=== PATIENT | male | born 1940 | race Caucasian/White ===

== ENCOUNTER → 2023-06-29 16:04 | Outpatient (REF) | payer MEDICARE, OTHER, SELFPAY | LOC: HWRAD 16:04 | PROVIDERS: ATTENDING PHYSICIAN Internal Medicine Geriatric Medicine | DX: I10 Essential (primary) hypertension (principal); J18.9 Pneumonia, unspecified organism | CPT/HCPCS: 71046 ==

== ENCOUNTER → 2023-07-07 14:56 | Outpatient (REF) | payer MEDICARE, OTHER, SELFPAY ==
[2023-07-07 15:56] LABS: Blood Urea Nitrogen 23 mg/dl (9-20); Calcium 8.7 mg/dl (8.4-10.2); Carbon Dioxide 23 mmol/L (22-30); Chloride 106 mmol/L (98-107); Glucose 61 mg/dl (70-99); Magnesium 1.9 mg/dl (1.6-2.3); Potassium 4.6 mmol/L (3.5-5.1); Sodium 134 mmol/L (135-145)
[2023-07-07 16:04] LABS: NT-proBNP 504 pg/ml
[2023-07-07 16:10] LABS: eGFR > 60.00
[2023-07-08 11:13] LABS: Free T4 1.28 ng/dl (0.78-2.19)
[2023-07-08 11:23] LABS: TSH 1.38 uIU/ml (0.47-4.68)
== END ==
LOC: REG 14:56
PROVIDERS: ATTENDING PHYSICIAN Internal Medicine Cardiovascular Disease; FAMILY PHYSICIAN Internal Medicine Geriatric Medicine
DX: I48.0 Paroxysmal atrial fibrillation (principal); I10 Essential (primary) hypertension; I35.0 Nonrheumatic aortic (valve) stenosis
CPT/HCPCS: 36415; 80048; 83735; 83880; 84439; 84443

== ENCOUNTER → 2023-08-07 11:10 | Outpatient (REF) | payer MEDICARE, OTHER, SELFPAY ==
[2023-08-07 15:37] LABS: % Basophils 0.7 % (0-2); % Immature Granulocytes 0.2 % (0-0.5); % Lymphocytes 24.5 % (20.5-51.1); % Monocytes 9.4 % (1.7-9.3); % Neutrophils 58.2 % (42.2-75.2); Absolute Eosinophils 0.3 10^3/uL (0-0.7); Absolute Lymphocytes 1.1 10^3/uL (1.2-3.4); Absolute Monocytes 0.4 10^3/uL (0.1-0.6); Absolute Neutrophils 2.6 10^3/uL (1.4-6.5); Hematocrit 37.9 % (39.0-52.0); Hemoglobin 12.5 g/dL (13.0-18.0); Mean Corpuscular Volume 90.9 fL (80.0-94.0); Nucleated Red Blood Cells % 0 % (-); Red Blood Cell Count 4.17 10^6/uL (4.70-6.10); White Blood Cell Count 4.5 10^3/uL (4.8-10.8)
[2023-08-07 15:44] LABS: Urine Albumin Negative (Neg - Trace); Urine Bilirubin 1+ (Negative); Urine Character Clear (Clear); Urine Color Yellow; Urine Glucose Negative (Negative); Urine Ketone Trace (Negative); Urine Leukocyte Trace (Negative); Urine Nitrite Negative (Negative); Urine Occult Blood Trace (Negative); Urine Urobilinogen 1+ (Neg - 1+)
[2023-08-07 16:03] LABS: Urine Bacteria Few (Negative); Urine White Cell 0-2 /HPF (0-5)
[2023-08-07 16:16] LABS: ALT (SGPT) 18 U/L (0-50); AST (SGOT) 31 U/L (17-59); Albumin 3.9 g/dl (3.5-5.0); Alkaline Phosphatase 142 U/L (38-126); Blood Urea Nitrogen 22 mg/dl (9-20); Carbon Dioxide 25 mmol/L (22-30); Chloride 105 mmol/L (98-107); Glucose 105 mg/dl (70-99); HDL Cholesterol 50 mg/dl; LDL Cholesterol, Calculated 17 mg/dl; Potassium 4.3 mmol/L (3.5-5.1); Sodium 138 mmol/L (135-145); Total Bilirubin 1.8 mg/dl (0.2-1.3); Total Cholesterol 83 mg/dl (50-199); Total Protein 6.7 g/dl (6.3-8.2); Triglyceride 84 mg/dl (10-149); Very Low Density Lipoprotein 16 mg/dl (0-30); eGFR 54.85
[2023-08-07 16:21] LABS: Mean Platelet Volume 10.3 fL (7.4-10.4); Platelet Count 89 10^3/uL (130-400)
[2023-08-07 16:30] LABS: Vitamin D, 25-OH*** 60.7 ng/mL (30-80)
== END ==
LOC: HWLAB 11:10
PROVIDERS: ATTENDING PHYSICIAN Internal Medicine Geriatric Medicine
DX: I10 Essential (primary) hypertension (principal); I48.0 Paroxysmal atrial fibrillation; I45.6 Pre-excitation syndrome; K22.70 Barrett's esophagus without dysplasia; I71.40 Abdominal aortic aneurysm, without rupture, unspecified; I35.0 Nonrheumatic aortic (valve) stenosis; E78.2 Mixed hyperlipidemia; I95.1 Orthostatic hypotension; G45.3 Amaurosis fugax; Z13.89 Encounter for screening for other disorder; M54.2 Cervicalgia; J18.9 Pneumonia, unspecified organism; K40.90 Unilateral inguinal hernia, without obstruction or gangrene, not specified as recurrent; N18.30 Chronic kidney disease, stage 3 unspecified
CPT/HCPCS: 36415; 80053; 80061; 81003; 81015; 82306; 85025

== ENCOUNTER → 2023-08-18 07:41 | Outpatient (REF) | payer MEDICARE, OTHER, SELFPAY ==
[2023-08-18 09:38] LABS: Urine Albumin Negative (Neg - Trace); Urine Bilirubin Negative (Negative); Urine Character Clear (Clear); Urine Color Yellow; Urine Glucose Negative (Negative); Urine Ketone Negative (Negative); Urine Leukocyte Negative (Negative); Urine Nitrite Negative (Negative); Urine Occult Blood Negative (Negative); Urine Urobilinogen 2+ (Neg - 1+)
[2023-08-18 12:55] LABS: ALT (SGPT) 30 U/L (0-50); AST (SGOT) 40 U/L (17-59); Albumin 3.8 g/dl (3.5-5.0); Alkaline Phosphatase 160 U/L (38-126); Blood Urea Nitrogen 18 mg/dl (9-20); Calcium 9.1 mg/dl (8.4-10.2); Carbon Dioxide 26 mmol/L (22-30); Chloride 105 mmol/L (98-107); Glucose 85 mg/dl (70-99); Potassium 4.9 mmol/L (3.5-5.1); Sodium 139 mmol/L (135-145); Total Bilirubin 1.3 mg/dl (0.2-1.3); Total Protein 6.6 g/dl (6.3-8.2); eGFR > 60.00
== END ==
LOC: HWLAB 07:41
PROVIDERS: ATTENDING PHYSICIAN Internal Medicine Geriatric Medicine
DX: N18.32 Chronic kidney disease, stage 3b (principal); I10 Essential (primary) hypertension; I48.0 Paroxysmal atrial fibrillation; I45.6 Pre-excitation syndrome; E78.2 Mixed hyperlipidemia; I5A Non-ischemic myocardial injury (non-traumatic)
CPT/HCPCS: 36415; 80053; 81003; 87086

== ENCOUNTER → 2023-08-31 15:59 | Outpatient (REF) | payer MEDICARE, OTHER, SELFPAY | LOC: RAD 15:59 | PROVIDERS: ATTENDING PHYSICIAN Nurse Practitioner Family | DX: R22.31 Localized swelling, mass and lump, right upper limb (principal); M79.601 Pain in right arm | CPT/HCPCS: 73080; 73090 ==

== ENCOUNTER → 2023-09-01 07:11 | Outpatient (REF) | payer MEDICARE, OTHER, SELFPAY | LOC: RCS 07:11 | PROVIDERS: ATTENDING PHYSICIAN Internal Medicine Cardiovascular Disease; FAMILY PHYSICIAN Internal Medicine Geriatric Medicine | DX: I10 Essential (primary) hypertension (principal); I48.0 Paroxysmal atrial fibrillation; R07.9 Chest pain, unspecified | CPT/HCPCS: 78452; 93017; A9500; J2785 ==

== ENCOUNTER → 2023-09-03 07:13 | Outpatient (REF) | payer MEDICARE, OTHER, SELFPAY | LOC: DHCBS HW 07:13 | PROVIDERS: ATTENDING PHYSICIAN Internal Medicine Cardiovascular Disease; FAMILY PHYSICIAN Internal Medicine Geriatric Medicine | DX: I49.3 Ventricular premature depolarization (principal) | CPT/HCPCS: 93306 ==

== ENCOUNTER → 2023-09-25 14:46 | Outpatient (REF) | payer MEDICARE, OTHER, SELFPAY | LOC: RAD 14:46 | PROVIDERS: ATTENDING PHYSICIAN Surgery Vascular Surgery; FAMILY PHYSICIAN Internal Medicine Geriatric Medicine | DX: I71.40 Abdominal aortic aneurysm, without rupture, unspecified (principal) | CPT/HCPCS: 76770 ==

== ENCOUNTER → 2023-11-03 10:34 | Outpatient (REF) | payer MEDICARE, OTHER, SELFPAY ==
[2023-11-05 13:56] LABS: Alk Phos Bone Specific Results 18.9 ug/L (6.5-20.1)
== END ==
LOC: REG 10:34
PROVIDERS: ATTENDING PHYSICIAN Internal Medicine Geriatric Medicine
DX: I10 Essential (primary) hypertension (principal); N18.32 Chronic kidney disease, stage 3b; I48.0 Paroxysmal atrial fibrillation; I45.6 Pre-excitation syndrome; K22.70 Barrett's esophagus without dysplasia; I71.40 Abdominal aortic aneurysm, without rupture, unspecified; I35.0 Nonrheumatic aortic (valve) stenosis; E78.2 Mixed hyperlipidemia; I95.1 Orthostatic hypotension; G45.3 Amaurosis fugax; Z13.89 Encounter for screening for other disorder; R00.2 Palpitations; M54.2 Cervicalgia; J18.9 Pneumonia, unspecified organism; K40.90 Unilateral inguinal hernia, without obstruction or gangrene, not specified as recurrent; K22.710 Barrett's esophagus with low grade dysplasia; I49.3 Ventricular premature depolarization; R74.8 Abnormal levels of other serum enzymes
CPT/HCPCS: 36415; 84075

== ENCOUNTER → 2023-11-13 13:26 | Outpatient (REF) | payer MEDICARE, OTHER, SELFPAY | LOC: MRI 13:26 | PROVIDERS: ATTENDING PHYSICIAN Internal Medicine Geriatric Medicine | DX: R74.8 Abnormal levels of other serum enzymes (principal) | CPT/HCPCS: 74181 ==

== ENCOUNTER 2024-01-16 22:06 | Emergency (ER) | payer MEDICARE, OTHER, SELFPAY ==
[2024-01-16 22:07] VITALS: BP 138/72
[2024-01-16 22:44] VITALS: BMI 25.8
--- NOTE | 2024-01-17 00:08 | ED.GENMED ---
History of Present Illness
<Loulou Reyes MD, Resident - Last Filed: 01/17/24 03:48>
General
Chief Complaint: Swelling
Source: patient
Exam Limitations: none
Time Seen by Provider: 01/16/24 23:34
Nursing documentation reviewed up to this point in time: agreed with
History of Present Illness
History of Present Illness:
83 yr old male who presents to the ED with worsening L ankle pain and swelling x 1 day. Pt noticed some swelling and mild stiffness yesterday which progressed to pain and difficulty walking. He has ambulated with a walker since to help alleviate
pain with weight-bearing. Reports some numbness at the bottom of his foot. no radiation.
He was seen at two days ago for acute left lower back pain for which he was prescribed cyclobenzaprine which helped with his back pain. Recent bout of watery diarrhea starting 1 week ago which was treated with imodium and resolved.
Denies hx of gout or recent increase in alcohol or meat intake. Has been on BRAT diet for diarrhea over the past week. No left ankle surgical history. Denies fever, malaise, chest pain, palpitations, SOB, N/V, or urinary symptoms.
Past History
<Loulou Reyes MD, Resident - Last Filed: 01/17/24 03:48>
Past History
ED Past Medical History: Arrthythmia (Atrial fib), HTN, Hypercholesterolemia, Valvular disease, Hypothyroidism, Other (Duodenal ulcer, WPW, barretts esophagus. PVC's, Kidney stones,) and Other ( glossopharyngeal neuralgia); Negative CAD
ED Past Surgical History: Cardiac (3 ablations, 3 cardioversions), Cholecystectomy, Orthopedic and Other (Noncontributory)
Social History
Tobacco: Former smoker (quit 40 years ago)
Alcohol: Occasional
Drug: None
Personal:
Living: with family
Employment: Employed
Family History
Family History: Other (Noncontributory)
Review of Systems
<Loulou Reyes MD, Resident - Last Filed: 01/17/24 03:48>
Review of Systems
Constitutional: Denies fever or fatigue
Respiratory: Denies trouble breathing
Cardiac: Denies chest pain or palpitations
ABD/GI: Denies nausea, vomiting or diarrhea
: Denies dysuria, frequency, difficulty voiding or urgency
Musculoskeletal: Reports joint pain (left lower back, left ankle) and joint swelling (L ankle swelling)
Neurological: Reports numbness (bottom of left foot)
Phy Exam
<Loulou Reyes MD, Resident - Last Filed: 01/17/24 03:48>
General Physical Exam
General Presentation: well appearing and no apparent distress
General Skin: warm and dry
General Habitus: normal
General Mental: alert
Cardiovascular Exam
Cardiovascular Exam: regular rate/rhythm, no edema and pacemaker
Pulmonary Exam
Pulmonary Exam: lungs clear, no respiratory distress, no rales, no crackles, no rhonchi and no wheezing
Neurological Exam
Neurological Exam: alert and oriented x3
Musculoskeletal Exam
Musculoskeletal Exam: back pain (mild tenderness in L lower back), joint swelling (left ankle swelling, tender, warm to touch. ROM restricted by pain. ) and neuro vasc intact
Scores
<Yodit Rodriguez, DO - Last Filed: 01/17/24 02:29>
Heart Failure Risk
Heart Failure Risk Score: Not Applicable
Course
<Loulou Reyes MD, Resident - Last Filed: 01/17/24 03:48>
Orders/Labs/Results
Orders:
Orders
01/17/24 00:08
Ankle, left 3 view CR [CR Ankle - Left Min 3 Views ] Urgent
Comment:
Reason For Exam: L ankle pain and swelling
01/17/24 00:20
Acetaminophen 1000MG/100Ml [Ofirmev] 1,000 mg in 100 ml IV ONCE
Acetaminophen IV Indication:: ED Narcotic Naive Pt-ONCE
01/17/24 00:24
Complete Blood Count/With Diff Urgent
Sed Rate [Erythrocyte Sed Rate] Urgent
01/17/24 00:47
C-Reactive Protein Urgent
Comprehensive Metabolic Panel Urgent
Lyme Progressive Urgent
Comment: ADD ON
Uric Acid Urgent
01/17/24 01:02
0.9% Sodium Chloride 1000 ml [Nss] 1,000 ml IV BOLUS
01/17/24 02:21
Dexamethasone Sod Phosphate [Decadron] 10 mg IV NOW STA
01/17/24 02:26
Add On- LAB Urgent
Tests Added?: Lyme progressive
Abnormal Lab Results
01/17/24 01/17/24
00:24 00:47
RBC 3.86 L 10^6/uL
(4.70-6.10)
Hgb 12.0 L g/dL
(13.0-18.0)
Hct 34.0 L %
(39.0-52.0)
MCH 31.1 H pg
(27.0-31.0)
RDW 14.8 H %
(11.5-14.5)
Plt Count 91 L 10^3/uL
(130-400)
Absolute Lymphs (auto) 0.8 L 10^3/uL
(1.2-3.4)
Absolute Monos (auto) 0.8 H 10^3/uL
(0.1-0.6)
Lymphocytes % 13.8 L %
(20.5-51.1)
Monocytes % 12.9 H %
(1.7-9.3)
ESR 31 H mm/hour
(0-20)
Glucose 108 H mg/dl
(70-99)
Total Bilirubin 1.9 H mg/dl
(0.2-1.3)
C-Reactive Protein 148.70 H mg/L
(0.0-10.00)
01/17/24 00:24
01/17/24 00:47
Vital Signs
Initial and Last Documented VS:
Initial Vital Signs
Temp Pulse Resp BP Pulse Ox
98.1 F 71 20 138/72 99
01/16/24 22:07 01/16/24 22:07 01/16/24 22:07 01/16/24 22:07 01/16/24 22:07
Last Documented Vital Signs
Temp Pulse Resp BP Pulse Ox
98.4 F 70 16 128/74 98
01/17/24 01:27 01/17/24 02:30 01/17/24 02:30 01/17/24 02:30 01/17/24 02:30
<Yodit Rodriguez, DO - Last Filed: 01/17/24 02:29>
Orders/Labs/Results
Orders:
Orders
01/17/24 00:08
Ankle, left 3 view CR [CR Ankle - Left Min 3 Views ] Urgent
Comment:
Reason For Exam: L ankle pain and swelling
01/17/24 00:20
Acetaminophen 1000MG/100Ml [Ofirmev] 1,000 mg in 100 ml IV ONCE
Acetaminophen IV Indication:: ED Narcotic Naive Pt-ONCE
01/17/24 00:24
Complete Blood Count/With Diff Urgent
Sed Rate [Erythrocyte Sed Rate] Urgent
01/17/24 00:47
C-Reactive Protein Urgent
Comprehensive Metabolic Panel Urgent
Lyme Progressive Urgent
Comment: ADD ON
Uric Acid Urgent
01/17/24 01:02
0.9% Sodium Chloride 1000 ml [Nss] 1,000 ml IV BOLUS
01/17/24 02:21
Dexamethasone Sod Phosphate [Decadron] 10 mg IV NOW STA
01/17/24 02:26
Add On- LAB Urgent
Tests Added?: Lyme progressive
Abnormal Lab Results
01/17/24 01/17/24
00:24 00:47
RBC 3.86 L 10^6/uL
(4.70-6.10)
Hgb 12.0 L g/dL
(13.0-18.0)
Hct 34.0 L %
(39.0-52.0)
MCH 31.1 H pg
(27.0-31.0)
RDW 14.8 H %
(11.5-14.5)
Plt Count 91 L 10^3/uL
(130-400)
Absolute Lymphs (auto) 0.8 L 10^3/uL
(1.2-3.4)
Absolute Monos (auto) 0.8 H 10^3/uL
(0.1-0.6)
Lymphocytes % 13.8 L %
(20.5-51.1)
Monocytes % 12.9 H %
(1.7-9.3)
ESR 31 H mm/hour
(0-20)
Glucose 108 H mg/dl
(70-99)
Total Bilirubin 1.9 H mg/dl
(0.2-1.3)
C-Reactive Protein 148.70 H mg/L
(0.0-10.00)
01/17/24 00:24
01/17/24 00:47
Vital Signs
Initial and Last Documented VS:
Initial Vital Signs
Temp Pulse Resp BP Pulse Ox
98.1 F 71 20 138/72 99
01/16/24 22:07 01/16/24 22:07 01/16/24 22:07 01/16/24 22:07 01/16/24 22:07
Last Documented Vital Signs
Temp Pulse Resp BP Pulse Ox
98.4 F 70 16 128/74 98
01/17/24 01:27 01/17/24 02:30 01/17/24 02:30 01/17/24 02:30 01/17/24 02:30
<Loulou eRyes MD, Resident - Last Filed: 01/17/24 03:48>
MDM/Problems Addressed
Differential Diagnosis Includes:
Inflammatory arthritis, gout, pseudogout, septic arthritis, ankle sprain, fracture
MDM/Problems Addressed:
No known history of gout. Non-traumatic onset of ankle pain and swelling. Will check CMP, CBC, uric acid, sed rate, CRP, and L ankle xray.
<Yodit Rodriguez, DO - Last Filed: 01/17/24 02:29>
*Radiology
Radiology exam reviewed: preliminary read by ED provider (Left ankle x-ray shows mild DJD, calcification of arterials, otherwise unremarkable.)
*Pulse Oximetry
Patient hypoxic: no
*Critical Care Note
Total Time (30-74mins, 75-104mins- exclusive of procedures): Not Applicable
ED Attending Note
<Loulou Reyes MD, Resident - Last Filed: 01/17/24 03:48>
-
Portions of this chart may have been created with voice recognition software.� Occasional wrong word or��sound alike� substitutions may have occurred due to the inherent limitations of voice recognition software.
<Yodit Rodriguez DO - Last Filed: 01/17/24 02:29>
ED Attending Note
Patient seen and examined by attending physician: Yes
I performed the substantive portion of visit, reviewed & personally made and approve the management plan that is documented in note by myself or RAFIA.: Yes
ED Attending Note:
This is an 83-year-old gentleman who resides at home independently. He has history of paroxysmal atrial fibrillation, chronically maintained on Eliquis, history of GERD/Ferrell's esophagus, hypertension, hyperlipidemia, WPW, AAA�stable at 4.4 cm as
well as history of osteoarthritis with previous right knee replacement, bilateral shoulder replacements, right ankle reconstruction. He noted some low back pain on January 14 and was evaluated at urgent care, prescribed cyclobenzaprine with
improvement in back pain. No insightful injury nor fall. Then earlier today he noted atraumatic left ankle pain accompanied with mild swelling of his ankle that has gotten progressively worse throughout the day. He has not had a fever nor chills.
No calf pain nor swelling. No history of similar episodes in the past. He has not been taking anything for pain.
He reports no history of similar inflammatory arthropathies, no known history of gout nor pseudogout.
No recent invasive procedures, no recent dental cleaning etc.
Left ankle pain is worse with range of motion of his ankle, worse with ambulation, improves mildly when he is lying or sitting still.
He also notes some loose stools over the past week, passing 2-3 watery nonbloody bowel movements per day beginning last January 08. No accompanying abdominal pain, no nausea nor vomiting. He did call his PCP yesterday and picked up stool
collection kit but has not passed a bowel movement throughout the day today.
This is an 83-year-old gentleman who appears somewhat younger than stated age, bright and alert, pleasant, appears in no acute distress.
HEENT: Oral mucosa is very minimally dry. No rhinorrhea.
Neck is supple, nontender, no adenopathy.
Heart is regular rate and rhythm. No murmur no rub.
Lungs are clear to auscultation. No respiratory distress.
Abdomen is soft without appreciable tenderness. No palpable masses. No CVA tenderness.
Back: No midline bony tenderness. Minimal lower lumbar paravertebral tenderness to palpation. Straight leg raising is negative bilaterally.
Extremities: No clubbing or cyanosis nor edema. Peripheral pulses are full and equal bilaterally. Left ankle/proximal foot has very minimal soft tissue swelling with very minimal erythema along the anterior and medial aspect of the mid to distal
ankle. Mild to moderate local tenderness to palpation. There is full ankle range of motion with increased pain with dorsiflexion, inversion and eversion. No crepitus. There is no calf tenderness. No lymphangitis. No palpable heat.
Neuro: Awake alert and oriented x 3. No focal neurodeficits.
Concern for acute inflammatory arthropathy left ankle. Concern for osteoarthritis flare/acute gout versus pseudogout flare, other consideration is infectious arthropathy however reassuring the patient has not had a fever, no history of
immunocompromise. No history of diabetes etc. No definitive risk factors for infectious arthropathy.
He does note 1 week history of diarrheal illness thus there is concern for acute kidney injury/dehydration, electrolyte abnormality. Abdominal exam is soft and benign and he has had no diarrhea over the past 24 hours.
No recent antibiotic use.
Will check labs including inflammatory markers, uric acid. Will check x-ray left ankle.
As patient chronically maintained on Eliquis, history of GERD/gastritis, Ferrell's esophagus will avoid NSAIDs.
Will trial an IV dose of Tylenol for pain.
01/17/2024 0221 AM
Patient feeling mildly improved after IV Tylenol. Resting comfortably and remains afebrile.
X-ray of left ankle shows mild DJD, calcified arterials otherwise unremarkable.
Labs show normal white blood cell count of 6. Mild but stable thrombocytopenia, mild but stable anemia.
Chemistries show normal BUN and creatinine, normal electrolytes, mildly elevated total bili of 1.9, similar to previous.
Sed rate is mildly elevated at 31, CRP moderately elevated at 148.
History and exam most consistent with acute inflammatory arthropathy but at this point no convincing evidence of infectious arthropathy. There is very mild soft tissue swelling but not amenable to arthrocentesis for joint fluid analysis.
Will treat with a short course of prednisone and recommend he continue twice daily Protonix for GI protection.
A Lyme titer has been added to the blood in the lab.
He has a follow-up appointment with [facility] orth[facility] scheduled for January 20. This was scheduled for his ongoing low back pain for which he follows sporadically with the finance specialist at [facility] orth[facility]. Recommend
he call his orthopod for follow-up regarding left ankle pain as well.
Return precautions discussed.
Discharge Plan
Departure
Patient Disposition: Home (Routine Discharge)
Date of Disposition: 01/17/24
Time of Disposition: 02:24
Patient with high blood pressure during this ER visit?: No
Condition: Good
Discharge Problem:
acute inflammatory arthropathy L ankle
Instructions: Osteoarthritis, Gout ED
Prescriptions:
New
prednisone 50 mg tablet
50 mg PO DAILY Qty: 5 0RF
No Action
ascorbic acid (vitamin C) [Vitamin C] 500 MG tablet
1,000 mg PO DAILY
Centrum Silver 1 EACH tablet
1 ea PO DAILY
Eliquis 5 MG tablet
5 mg PO BID Qty: 90 3RF
omeprazole 40 MG capsule,delayed release(DR/EC)
40 mg PO BID
amlodipine 5 mg Tablet
5 mg PO DAILY
levothyroxine [Synthroid] 50 mcg Tablet
50 mcg PO DAILY
coenzyme Q10 30 mg Capsule
60 mg PO DAILY
cholecalciferol (vitamin D3) [Vitamin D3] 25 mcg (1,000 unit) Capsule
25 mcg PO DAILY
acetaminophen 500 mg Tablet
1,000 mg PO Q6HPRN PRN (Reason: mild pain)
atorvastatin 40 mg tablet
80 mg PO QPM
ferrous sulfate 325 mg (65 mg iron) Tablet
325 mg PO DAILY Qty: 0
acetaminophen-codeine 300-30 mg tablet
1 tab PO Q4HPRN PRN (Reason: knee pains)
potassium citrate 10 mEq (1,080 mg) Tablet Extended Release
10 meq PO BID
metoprolol succinate 25 mg tablet extended release 24 hr
25 mg PO DAILY Qty: 1 0RF
doxycycline monohydrate 100 mg capsule
100 mg PO BID Qty: 20 0RF
Referrals:
Randolph Adams MD [Family Provider] - Call in 1-3 days for appt
Activity Restrictions/Additional Instructions:
Follow-up with [facility] orth[facility] as already scheduled.
Interventions
Interventions:
*Risk Screen - Suicide Last Done: 01/16/24 22:44
*General Assessment Last Done: 01/16/24 22:44
*Neglect/Abuse Screening Last Done: 01/16/24 22:44
ED- Fall Risk Assessment Last Done: 01/16/24 22:44
*ED COVID-19 Vaccine History Last Done: 01/16/24 22:44
*Nursing Disposition Last Done: 01/17/24 02:33
ED- Cardiac Assessment Last Done: 01/16/24 22:56
ED- Pulmonary Assessment Last Done: 01/16/24 22:57
ED-Skin Assessment Last Done: 01/16/24 22:57
Discharge Date and Time
Discharge Date/Time: 01/17/24 02:43
Print Language: BRUNEIAN
[2024-01-17] MEDS: OFIRMEV 100 IV (00:28)
[2024-01-17 00:40] LABS: Erythrocyte Sed Rate 31 mm/hour (0-20)
[2024-01-17 00:50] LABS: Mean Corp Hgb Conc. 35.3 g/dL (33.0-37.0); Mean Corpuscular Hgb 31.1 pg (27.0-31.0); Mean Corpuscular Volume 88.1 fL (80.0-94.0); Red Blood Cell Count 3.86 10^6/uL (4.70-6.10); Red Cell Dist. Width 14.8 % (11.5-14.5)
[2024-01-17 01:16] LABS: ALT (SGPT) 24 U/L (0-50); AST (SGOT) 44 U/L (17-59); Albumin 3.7 g/dl (3.5-5.0); Alkaline Phosphatase 113 U/L (38-126); Blood Urea Nitrogen 18 mg/dl (9-20); Calcium 8.8 mg/dl (8.4-10.2); Carbon Dioxide 26 mmol/L (22-30); Chloride 100 mmol/L (98-107); Estimated Creatinine Clearance 58 ml/min; Glucose 108 mg/dl (70-99); Sodium 137 mmol/L (135-145); Total Bilirubin 1.9 mg/dl (0.2-1.3); Total Protein 6.7 g/dl (6.3-8.2); eGFR > 60.00
[2024-01-17] MEDS: NSS 1000 IV (01:21)
[2024-01-17 01:24] VITALS: BP 125/71
[2024-01-17 01:27] VITALS: BP 125/71
[2024-01-17 01:28] LABS: % Basophils 0.3 % (0-2); % Immature Granulocytes 0.3 % (0-0.5); % Lymphocytes 13.8 % (20.5-51.1); % Monocytes 12.9 % (1.7-9.3); % Neutrophils 71.7 % (42.2-75.2); Absolute Eosinophils 0.1 10^3/uL (0-0.7); Absolute Lymphocytes 0.8 10^3/uL (1.2-3.4); Absolute Monocytes 0.8 10^3/uL (0.1-0.6); Absolute Neutrophils 4.3 10^3/uL (1.4-6.5); Nucleated Red Blood Cells % 0 % (-); Platelet Count 91 10^3/uL (130-400)
[2024-01-17 01:34] LABS: Uric Acid 6.9 mg/dl (3.5-8.5)
[2024-01-17 02:00] VITALS: BP 125/72
[2024-01-17] MEDS: DECADRON 10 MG IV (02:25)
[2024-01-17 02:30] VITALS: BP 128/74
[2024-01-18 12:14] LABS: Lyme Antibody Screen, EIA Negative (Negative)
== END 2024-01-17 02:43 | disposition home or self-care (01) ==
LOC: EMR 22:06
PROVIDERS: Student in an Organized Health Care Education/Training Program; EMERGENCY PHYSICIAN Emergency Medicine; FAMILY PHYSICIAN Internal Medicine Geriatric Medicine
DX: M12.872 Other specific arthropathies, not elsewhere classified, left ankle and foot (principal); M54.50 Low back pain, unspecified; M25.572 Pain in left ankle and joints of left foot; R26.2 Difficulty in walking, not elsewhere classified; M25.472 Effusion, left ankle; R20.0 Anesthesia of skin; I48.0 Paroxysmal atrial fibrillation; I10 Essential (primary) hypertension; I71.40 Abdominal aortic aneurysm, without rupture, unspecified; M19.90 Unspecified osteoarthritis, unspecified site; E78.00 Pure hypercholesterolemia, unspecified; K21.9 Gastro-esophageal reflux disease without esophagitis; E03.9 Hypothyroidism, unspecified; I45.6 Pre-excitation syndrome; K22.70 Barrett's esophagus without dysplasia; Z79.01 Long term (current) use of anticoagulants; Z96.612 Presence of left artificial shoulder joint; Z96.611 Presence of right artificial shoulder joint; Z96.651 Presence of right artificial knee joint; Z87.442 Personal history of urinary calculi; Z87.891 Personal history of nicotine dependence; Z90.49 Acquired absence of other specified parts of digestive tract; Z88.6 Allergy status to analgesic agent; Z88.8 Allergy status to other drugs, medicaments and biological substances
CPT/HCPCS: 99284; 96374; 96375; 96361 ×2; 73610; 80053; 84550; 85025; 85652; 86140; 86618

== ENCOUNTER → 2024-01-28 09:56 | Outpatient (REF) | payer MEDICARE, OTHER, SELFPAY ==
[2024-01-28 10:38] LABS: Urine Albumin Negative (Neg - Trace); Urine Bilirubin Negative (Negative); Urine Character Clear (Clear); Urine Color Yellow; Urine Glucose Negative (Negative); Urine Ketone Negative (Negative); Urine Leukocyte Negative (Negative); Urine Nitrite Negative (Negative); Urine Occult Blood 3+ (Negative); Urine Urobilinogen 1+ (Neg - 1+)
[2024-01-28 10:39] LABS: % Basophils 0.2 % (0-2); % Eosinophils 2.5 % (0-6); % Immature Granulocytes 0.6 % (0-0.5); % Lymphocytes 12.2 % (20.5-51.1); % Monocytes 10.6 % (1.7-9.3); % Neutrophils 73.9 % (42.2-75.2); Absolute Eosinophils 0.2 10^3/uL (0-0.7); Absolute Lymphocytes 0.8 10^3/uL (1.2-3.4); Absolute Monocytes 0.7 10^3/uL (0.1-0.6); Absolute Neutrophils 4.7 10^3/uL (1.4-6.5); Hemoglobin 12.6 g/dL (13.0-18.0); Mean Corp Hgb Conc. 34.1 g/dL (33.0-37.0); Mean Corpuscular Hgb 31.7 pg (27.0-31.0); Mean Platelet Volume 9.6 fL (7.4-10.4); Nucleated Red Blood Cells % 0 % (-); Platelet Count 107 10^3/uL (130-400); Red Blood Cell Count 3.98 10^6/uL (4.70-6.10); Red Cell Dist. Width 15.8 % (11.5-14.5); White Blood Cell Count 6.4 10^3/uL (4.8-10.8)
[2024-01-28 10:56] LABS: Erythrocyte Sed Rate 16 mm/hour (0-20)
[2024-01-28 10:58] LABS: Urine Squamous Cell 0-2 /LPF (Few)
[2024-01-28 10:59] LABS: Urine Bacteria Few (Negative); Urine White Cell 0-2 /HPF (0-5)
[2024-01-28 11:07] LABS: ALT (SGPT) 52 U/L (0-50); AST (SGOT) 47 U/L (17-59); Albumin 3.6 g/dl (3.5-5.0); Alkaline Phosphatase 171 U/L (38-126); Blood Urea Nitrogen 19 mg/dl (9-20); Calcium 8.9 mg/dl (8.4-10.2); Carbon Dioxide 25 mmol/L (22-30); Chloride 102 mmol/L (98-107); Glucose 123 mg/dl (70-99); Iron 73 ug/dl (49-181); Potassium 4.1 mmol/L (3.5-5.1); Sodium 136 mmol/L (135-145); Total Bilirubin 1.4 mg/dl (0.2-1.3); Total Protein 6.3 g/dl (6.3-8.2); eGFR > 60.00
[2024-01-28 11:16] LABS: Percent Saturation 27 % (20-50); Total Iron Binding Capacity 270 ug/dl (261-462)
[2024-01-28 11:23] LABS: Vitamin D, 25-OH*** 51.8 ng/mL (30-80)
== END ==
LOC: REG 09:56
PROVIDERS: ATTENDING PHYSICIAN Internal Medicine Geriatric Medicine
DX: I10 Essential (primary) hypertension (principal); N18.32 Chronic kidney disease, stage 3b; I48.0 Paroxysmal atrial fibrillation; E78.2 Mixed hyperlipidemia; I95.1 Orthostatic hypotension; Z13.89 Encounter for screening for other disorder; R00.2 Palpitations; M54.2 Cervicalgia; J18.9 Pneumonia, unspecified organism; K40.90 Unilateral inguinal hernia, without obstruction or gangrene, not specified as recurrent; K22.710 Barrett's esophagus with low grade dysplasia; I49.3 Ventricular premature depolarization
CPT/HCPCS: 36415; 80053; 81003; 81015; 82306; 83540; 83550; 85025; 85652; 86140

== ENCOUNTER → 2024-02-03 12:27 | Outpatient (REF) | payer MEDICARE, OTHER, SELFPAY ==
[2024-02-03 17:35] LABS: Urine Albumin Negative (Neg - Trace); Urine Bilirubin Negative (Negative); Urine Character Clear (Clear); Urine Color Yellow; Urine Glucose Negative (Negative); Urine Ketone Negative (Negative); Urine Leukocyte Negative (Negative); Urine Nitrite Negative (Negative); Urine Occult Blood Negative (Negative); Urine Urobilinogen Negative (Neg - 1+)
== END ==
LOC: HWLAB 12:27
PROVIDERS: ATTENDING PHYSICIAN Internal Medicine Geriatric Medicine
DX: R31.9 Hematuria, unspecified (principal)
CPT/HCPCS: 36415; 81003; 87086

== ENCOUNTER 2024-02-14 17:54 | Inpatient (IN) | payer MEDICARE, OTHER, SELFPAY ==
[2024-02-14] VITALS (8 sets, daily range): BP systolic 130–148; BP diastolic 74–84; BMI 25.5; BMI 24.1
--- NOTE | 2024-02-14 16:20 | EDRN ---
[employer] PM interrogated at this time.
--- NOTE | 2024-02-14 16:25 | EDRN ---
Portable CXR done at stretcher side.
--- NOTE | 2024-02-14 16:31 | ED.GENMED ---
History of Present Illness
<Hanh Hunter DRY PAN FEEDER - Last Filed: 02/14/24 17:56>
General
Chief Complaint: Heart Rate Problem
Source: patient
Exam Limitations: none
Time Seen by Provider: 02/14/24 16:31
Nursing documentation reviewed up to this point in time: agreed with
History of Present Illness
History of Present Illness:
83-year-old male with history of HTN moderate aortic stenosis, paroxysmal A-fib on Eliquis, Ffwme-Ytisitbyt-Jtfvb syndrome, Ferrell's esophagus, pacemaker, iron deficiency anemia, AAA without rupture, obesity, osteoarthritis, presents for
lightheadedness, palpitations, chest pain.
States upon awakening this a.m. felt lightheaded which is 'usual for me with all my medications,'
At 12 noon felt palpitations and lightheaded.
At 2 p.m. the lightheadedness was worse, he felt palpitations and his Apple watch showed 'my heart rate was out of whack.'
Around 3:15 developed mid chest, non radiating pain that lasted about 10 minutes then subsided.
Never felt faint
Symptoms occurred mostly while sitting at home.
No SOB, n/v, abdominal pain or breaking out in sweat.
Past History
<Hanh Hunter, DRY PAN FEEDER - Last Filed: 02/14/24 17:56>
Past History
ED Past Medical History: Arrthythmia (Atrial fib), HTN, Hypercholesterolemia, Valvular disease, Hypothyroidism, Other (Duodenal ulcer, WPW, barretts esophagus. PVC's, Kidney stones,) and Other ( glossopharyngeal neuralgia); Negative CAD
ED Past Surgical History: Cardiac (3 ablations, 3 cardioversions), Cholecystectomy, Orthopedic and Other (Noncontributory)
Social History
Tobacco: Former smoker (quit 40 years ago)
Alcohol: Occasional
Drug: None
Personal:
Living: with family
Employment: Employed
Family History
Family History: Other (Noncontributory)
Review of Systems
<Hanh Hunter DRY PAN FEEDER - Last Filed: 02/14/24 17:56>
Review of Systems
Allergies reviewed?: Yes
All Other Systems: ROS reviewed and negative except as documented in HPI and ROS
Constitutional: Denies fever or fatigue
Respiratory: Denies trouble breathing
Cardiac: Reports chest pain and palpitations; Denies diaphoresis or syncope
ABD/GI: Denies abdominal pain, nausea, vomiting, diarrhea, constipated or anorexia
: Denies dysuria, frequency or difficulty voiding
Musculoskeletal: Reports no symptoms
Skin: Reports no symptoms
Neurological: Reports no symptoms
Phy Exam
<Hanh Hunter, DRY PAN FEEDER - Last Filed: 02/14/24 17:56>
Physical Exam
Physical Exam:
GENERAL: No acute distress. A&Ox3.
CONSTITUTIONAL: Afebrile.
EYES: clear, conjunctivae normal
ENMT: moist mucus membranes, Pharynx nl
RESPIRATORY: Regular respirations, nonlabored, lungs clear.
CARDIOVASCULAR: Regular rate and rhythm, no murmurs, no rubs. HR 78 paced on monitor
GI: Soft, nontender, normal BS
MUSCULOSKELETAL: Moves with ease. Well perfused.
SKIN: Warm, dry, pink
PSYCH: Normal mood and affect. Well kept, interactive and appropriate
NEUROLOGIC: Awake, alert and oriented. No focal neurological deficits
Course
<Hanh Hunter, DRY PAN FEEDER - Last Filed: 02/14/24 17:56>
Orders/Labs/Results
Orders:
Orders
02/14/24 15:46
ECG [Electrocardiogram (*1)] Urgent
Reason for Study: Chest Pain
EKG- Treatment ONCE
02/14/24 16:15
Cardiac Monitoring- Treatment ONCE
IV Insert/Care/Rem.- Treatment PRN
CR Chest Portable - 1 View Urgent
Comment:
Reason For Exam: cp
Reason Study Needs to be Portable: Other
Pulse Ox/cont/shift [RESP] Stat
Quantity: 1
02/14/24 16:36
Complete Blood Count/With Diff Urgent
02/14/24 17:09
Comprehensive Metabolic Panel Urgent
Troponin I Urgent
02/14/24 17:44
Admit/Transfer Patient As Directed
Co-Sign Provider:
Level of Care: Inpatient admission
Assign to:: IVU
Physician / Group: cristobal
Diagnosis: chest pain
Reason for Hospitalization: chest pain
Expected length of stay greater than two midnights?: Yes
ELOS- Estimated Length of Stay in days: 3
I certify the patient meets the requirements for IP care: Yes
PRN Pain Medication Management As Directed
May give lesser potent ordered pain med per pt: Yes
preference::
Protocol:: Medication orders for pain may be administered in a
manner that supports deferring to patient preference
when the pt is:
- Requesting an ordered lesser potent pain medication.
Least to most potent pain medications are defined
as: acetaminophen < NSAID < tramadol < opioids
(morphine, oxycodone, hydromorphone).
- Requesting a lesser dose of the same medication IF
ORDERED.
- Requesting a less intrusive route of administration
if both routes are prescribed by the provider (PO <
IV).
02/14/24 17:45
Code Status As Directed
Resuscitation Status: Full Code
02/14/24 17:50
Add On- LAB Stat
Tests Added?: magnesium
Abnormal Lab Results
02/14/24 02/14/24
16:36 17:09
WBC 4.2 L 10^3/uL
(4.8-10.8)
RBC 3.94 L 10^6/uL
(4.70-6.10)
Hgb 12.5 L g/dL
(13.0-18.0)
Hct 36.3 L %
(39.0-52.0)
MCH 31.7 H pg
(27.0-31.0)
RDW 15.2 H %
(11.5-14.5)
Plt Count 111 L 10^3/uL
(130-400)
Absolute Lymphs (auto) 1.0 L 10^3/uL
(1.2-3.4)
Monocytes % 10.5 H %
(1.7-9.3)
BUN 23 H mg/dl
(9-20)
Alkaline Phosphatase 147 H U/L
(38-126)
02/14/24 16:36
02/14/24 17:09
Vital Signs
Initial and Last Documented VS:
Initial Vital Signs
Temp Pulse Resp BP Pulse Ox
97.8 F 78 18 142/84 99
02/14/24 15:53 02/14/24 15:53 02/14/24 15:53 02/14/24 15:53 02/14/24 15:53
Last Documented Vital Signs
Temp Pulse Resp BP Pulse Ox
97.8 F 70 17 135/83 96
02/14/24 15:53 02/14/24 17:15 02/14/24 17:15 02/14/24 17:00 02/14/24 17:15
<Chuck Martinez MD - Last Filed: 02/14/24 17:12>
Orders/Labs/Results
Orders:
Orders
02/14/24 15:46
ECG [Electrocardiogram (*1)] Urgent
Reason for Study: Chest Pain
EKG- Treatment ONCE
02/14/24 16:15
Cardiac Monitoring- Treatment ONCE
IV Insert/Care/Rem.- Treatment PRN
CR Chest Portable - 1 View Urgent
Comment:
Reason For Exam: cp
Reason Study Needs to be Portable: Other
Pulse Ox/cont/shift [RESP] Stat
Quantity: 1
02/14/24 16:36
Complete Blood Count/With Diff Urgent
02/14/24 17:09
Comprehensive Metabolic Panel Urgent
Troponin I Urgent
02/14/24 17:44
Admit/Transfer Patient As Directed
Co-Sign Provider:
Level of Care: Inpatient admission
Assign to:: IVU
Physician / Group: cristobal
Diagnosis: chest pain
Reason for Hospitalization: chest pain
Expected length of stay greater than two midnights?: Yes
ELOS- Estimated Length of Stay in days: 3
I certify the patient meets the requirements for IP care: Yes
PRN Pain Medication Management As Directed
May give lesser potent ordered pain med per pt: Yes
preference::
Protocol:: Medication orders for pain may be administered in a
manner that supports deferring to patient preference
when the pt is:
- Requesting an ordered lesser potent pain medication.
Least to most potent pain medications are defined
as: acetaminophen < NSAID < tramadol < opioids
(morphine, oxycodone, hydromorphone).
- Requesting a lesser dose of the same medication IF
ORDERED.
- Requesting a less intrusive route of administration
if both routes are prescribed by the provider (PO <
IV).
02/14/24 17:45
Code Status As Directed
Resuscitation Status: Full Code
02/14/24 17:50
Add On- LAB Stat
Tests Added?: magnesium
Abnormal Lab Results
02/14/24 02/14/24
16:36 17:09
WBC 4.2 L 10^3/uL
(4.8-10.8)
RBC 3.94 L 10^6/uL
(4.70-6.10)
Hgb 12.5 L g/dL
(13.0-18.0)
Hct 36.3 L %
(39.0-52.0)
MCH 31.7 H pg
(27.0-31.0)
RDW 15.2 H %
(11.5-14.5)
Plt Count 111 L 10^3/uL
(130-400)
Absolute Lymphs (auto) 1.0 L 10^3/uL
(1.2-3.4)
Monocytes % 10.5 H %
(1.7-9.3)
BUN 23 H mg/dl
(9-20)
Alkaline Phosphatase 147 H U/L
(38-126)
02/14/24 16:36
02/14/24 17:09
Vital Signs
Initial and Last Documented VS:
Initial Vital Signs
Temp Pulse Resp BP Pulse Ox
97.8 F 78 18 142/84 99
02/14/24 15:53 02/14/24 15:53 02/14/24 15:53 02/14/24 15:53 02/14/24 15:53
Last Documented Vital Signs
Temp Pulse Resp BP Pulse Ox
97.8 F 70 17 135/83 96
02/14/24 15:53 02/14/24 17:15 02/14/24 17:15 02/14/24 17:00 02/14/24 17:15
Arturolt;Hanh Hunter DRY PAN FEEDER - Last Filed: 02/14/24 17:56>
MDM/Problems Addressed
Differential Diagnosis Includes:
ACS, dysrhythmia
MDM/Problems Addressed:
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
anemia, AAA without rupture, obesity, osteoarthritis, presents for lightheadedness, palpitations, chest pain.
States upon awakening this a.m. felt lightheaded which is 'usual for me with all my medications,'
At 12 noon felt palpitations and lightheaded.
At 2 p.m. the lightheadedness was worse, he felt palpitations and his Apple watch showed 'my heart rate was out of whack.'
Around 3:15 developed mid chest, non radiating pain that lasted about 10 minutes then subsided.
Never felt faint
Symptoms occurred mostly while sitting at home.
No SOB, n/v, abdominal pain or breaking out in sweat.
Pt asymptomatic at this time. VSS.
EKG: AV dual paced rhythm with prolonged AV conduction, no changes
CBC no clinically significant abnormality pain
Pacemaker interrogation: Report called to Dr. Martinez. In past 15 days, had 516 non sustained v-tach episodes. Today around 3:30 had an 8.5 minute sustained v tach episode
Coincidentally at the same time, pt had chest pain, lightheaded at that time that lasted about 10 minutes.
4:[address] Martinez in to evaluate. Consulted Dr. Gilbert kier drier
Plan: Admit for monitoring, no medication at this time, hold Eliquis tonight and tomorrow a.m., if significant runs of v tach recommends Amiodarone
Pt is asymptomatic and stable at this time.
Hospitalist notified of admission.
<Hanh Hunter DRY PAN FEEDER - Last Filed: 02/14/24 17:56>
*Critical Care Note
Total Time (30-74mins, 75-104mins- exclusive of procedures): Not Applicable
ED Attending Note
<Hanh V. Day, DRY PAN FEEDER - Last Filed: 02/14/24 17:56>
-
Portions of this chart may have been created with voice recognition software.� Occasional wrong word or��sound alike� substitutions may have occurred due to the inherent limitations of voice recognition software.
<Chuck Martinez MD - Last Filed: 02/14/24 17:12>
ED Attending Note
Patient seen and examined by attending physician: Yes
I performed the substantive portion of visit, reviewed & personally made and approve the management plan that is documented in note by myself or RAFIA.: Yes
ED Attending Note:
Patient with episodes of intermittent lightheadedness over the last week. Today during a unusually severe dizzy spell he also had chest pain. This lasted about 30 minutes. Occurred about 330. Currently asymptomatic.
Previous records were reviewed. Patient has a history of a flutter, non-STEMI [place], tachybradycardia syndrome requiring pacemaker and TAVR.
Lungs are clear and equal. Heart regular rate and rhythm. Abdomen soft and nontender. Warm and dry. Perfusing well. Nontoxic in appearance
Interrogation showed over 500 episodes of nonsustained V. tach over the last 10 days. Each 1 usually lasting about 20 beats. However today about 330 he had 8-1/2 minutes of nonsustained V. tach. Cardiology was called and discussed. Will he will
be admitted and observed monitor. No antiarrhythmics at this time although if he does need 1 based on increasing episodes of V. tach they would recommend amiodarone. Hold Dae amilcaright and tomorrow morning in case he needs a cardiac cath.
Discharge Plan
Departure
Patient Disposition: Admit
Date of Disposition: 02/14/24
Time of Disposition: 17:08
Admit to: Telemetry
Presentation/result/management discussed w/ accepting MD/DO: Hospitalist
Condition: Fair
Discharge Problem:
Chest pain, Recurrent ventricular tachycardia
Interventions
Interventions:
*Risk Screen - Suicide Last Done: 02/14/24 16:24
*General Assessment Last Done: 02/14/24 16:24
*Neglect/Abuse Screening Last Done: 02/14/24 16:24
ED- Fall Risk Assessment Last Done: 02/14/24 16:24
*ED COVID-19 Vaccine History Last Done: 02/14/24 16:24
ED- Cardiac Assessment Last Done: 02/14/24 16:59
ED- Pulmonary Assessment Last Done: 02/14/24 16:59
[2024-02-14 16:44] LABS: % Basophils 0.7 % (0-2); % Immature Granulocytes 0.5 % (0-0.5); % Lymphocytes 22.9 % (20.5-51.1); % Monocytes 10.5 % (1.7-9.3); % Neutrophils 61.4 % (42.2-75.2); Absolute Eosinophils 0.2 10^3/uL (0-0.7); Absolute Monocytes 0.4 10^3/uL (0.1-0.6); Absolute Neutrophils 2.6 10^3/uL (1.4-6.5); Hematocrit 36.3 % (39.0-52.0); Hemoglobin 12.5 g/dL (13.0-18.0); Mean Corp Hgb Conc. 34.4 g/dL (33.0-37.0); Mean Corpuscular Hgb 31.7 pg (27.0-31.0); Mean Corpuscular Volume 92.1 fL (80.0-94.0); Nucleated Red Blood Cells % 0 % (-); Platelet Count 111 10^3/uL (130-400); Red Blood Cell Count 3.94 10^6/uL (4.70-6.10); Red Cell Dist. Width 15.2 % (11.5-14.5); White Blood Cell Count 4.2 10^3/uL (4.8-10.8)
--- NOTE | 2024-02-14 16:45 | EDRN ---
Dr. Martinez received call from [employer] who said pt had 8.5 min of sustained VT noted on interrogation of PM. Dr. Martinez in room now.
--- NOTE | 2024-02-14 16:57 | EDRN ---
iLsa MUELLER in room w/ pt.
--- NOTE | 2024-02-14 17:10 | EDRN ---
Comprehensive and troponin bloods were hemolyzed per lab and just redrawn and resent to lab.
--- NOTE | 2024-02-14 17:15 | HPS.HSE ---
Addendum entered and electronically signed by Hao Zimmerman DO 02/14/24 17:56:
Patient seen and examined independently. Agree with findings and plan as set forth by ERVIN Kemp.
Patient is an 83y M with PMH significant for paroxysmal A-Fib, WPW, hypertension and aortic stenosis who presents to ED complaining of lightheadedness and palpitations. Patient reports lightheadedness that is typically present in the AM - but
then resolves fairly quickly. Today he felt lightheaded well past noon which is unusual for him. He then began to note palpitations / racing heartbeat. His symptoms persisted / progressed and he presented to the ED for further evaluation. En
route to the ED, the patient also developed substernal chest discomfort. His symptoms all resolved completely by the time her arrived in the ED. At present, he is resting comfortably with no complaints.
PPM was interrogated in the ED and shows episode of VT that correlates with his palpitations and chest discomfort.
Ass:
Ventricular Tachycardia
Paroxysmal A-Fib / Atrial Tachycardia
Severe Aortic Stenosis s/p TAVR
ASCVD / PAD
Benign Hypertension
Hypothyroidism
GERD
Plan:
Admit to monitored bed fro further evaluation and treatment.
Begin IV amiodarone protocol if any recurrent VT is appreciated.
Cardiology evaluation for additional recommendations.
Note that patient was scheduled to be hospitalized for Tikosyn loading in about a week or so.
Follow for any new / recurrent symptoms.
Continue usual outpatient medications.
Original Note:
Family Physician
-
Family Physician: Randolph Adams
Chief Complaint
-
lightheaded, palpitation
History of Present Illness
83-year-old male with history of HTN moderate aortic stenosis, paroxysmal A-fib on Eliquis, Fgvyx-Jcuihogas-Bfdbo syndrome, Ferrell's esophagus, pacemaker, iron deficiency anemia, AAA without rupture, obesity, osteoarthritis, presents for
lightheadedness, palpitations, chest pain presented to us with lightheadedness and palpitation. patient stated lightheadedness persisted today. felt intermittent palpitation. patient stated non radiating, non exertional mid sternum chest pain which
lasted for few minutes. denied STARK, dizzy or syncopal episode. denied fever, chills,chest pain, sob.denied abdominal pain,n,v,d. denied dysuria or hematuria.
three weeks ago, his metoprolol was switched to diltiazem, as well as he is scheduled for Tikosyn loading in few weeks.
admitting for further management.
Medical History
Past Medical History
Past Medical History: Reports Other
Additional Past Medical History:
barrets esophagus
htn
CKD stage 3 b
hld
kidney stones
paroxysmal atrial fib
iron def anemia
[place] parkinson disease
Past Surgical History: Reports Other
Additional Past Surgical History:
right knee replacement
right hip replacement
right shoulder replacement
cholecystectomy
Social History
Tobacco: Former Smoker
Alcohol: None
Drug: None
Family History
Family History: Not pertinent
Allergies / Home Medications
Allergies reflects when Allergies were last updated in [facility].
Home Medications with original date entered in [facility]
Allergy/Medication List:
Allergies
Allergy/AdvReac Type Severity Reaction Status Date / Time
ibuprofen Allergy barrets Verified 02/14/24 15:54
esophogus
lisinopril Allergy upset Verified 02/14/24 15:54
stomach/tired
tramadol Allergy Vomiting Verified 02/14/24 15:54
Home Medications
ascorbic acid (vitamin C) 500 mg tablet (Vitamin C) 1,000 mg PO DAILY Supplement 07/21/17
sujtjryq-jdj-gtdph acid 0.4 mg-lycopene 300 mcg-lutein 250 mcg tablet (Centrum Silver) 1 ea PO DAILY Supplement 07/21/17
apixaban 5 mg tablet (Eliquis) 5 mg PO BID #90 tabs 10/02/17
omeprazole 40 mg capsule,delayed release 40 mg PO BID GERD 11/02/19
amlodipine 5 mg tablet 5 mg PO DAILY Blood pressure 07/02/22
cholecalciferol (vitamin D3) 25 mcg (1,000 unit) capsule (Vitamin D3) 25 mcg PO DAILY Supplement 07/02/22
coenzyme Q10 30 mg capsule 60 mg PO DAILY Supplement 07/02/22
levothyroxine 50 mcg tablet (Synthroid) 50 mcg PO DAILY Thyroid 07/02/22
acetaminophen 500 mg tablet 1,000 mg PO Q6HPRN PRN mild pain 07/03/22
atorvastatin 40 mg tablet 80 mg PO QPM High cholesterol 07/24/22
ferrous sulfate 325 mg (65 mg iron) tablet 325 mg PO DAILY Supplement ##0 07/24/22
acetaminophen 300 mg-codeine 30 mg tablet 1 tab PO Q4HPRN PRN knee pains 08/04/22
potassium citrate 10 mEq (1,080 mg) tablet,extended release 10 meq PO BID Supplement 08/04/22
metoprolol succinate 25 mg tablet,extended release 24 hr 25 mg PO DAILY Heart disease/condition #1 tab 08/07/22
doxycycline monohydrate 100 mg capsule 100 mg PO BID #20 caps 05/18/23
prednisone 50 mg tablet 50 mg PO DAILY #5 tabs 01/17/24
Review of Systems
-
Constitutional: Reports No Symptoms
EENT: Reports No Symptoms
Respiratory: Reports No Symptoms
Cardiac: Reports Chest Pain and Palpitations
Abdomen/GI: Reports No Symptoms
: Reports No Symptoms
Musculoskeletal: Reports No Symptoms
Skin: Reports No Symptoms
Neurological: Reports No Symptoms
Endocrine: Reports No Symptoms
Hematologic/Lymphatic: Reports No Symptoms
Psych: Reports No Symptoms
Physical Exam
Vital Signs
Vital Signs
Temp Pulse Resp BP Pulse Ox
97.8 F 78 26 130/78 97
02/14/24 15:53 02/14/24 16:17 02/14/24 16:17 02/14/24 16:16 02/14/24 16:17
Physical Exam
General: Well Developed, Well Nourished and No Apparent Distress
HEENT: NormoCephalic, Moist mucous membranes and Atraumatic
Respiratory: Clear
Cardiac: S1/S2 and Regular Rhythm; No Murmur or Rub
GI: Soft, Non Tender, Non Distended and Normal Bowel Sounds; No Organomegaly
Rectal: Deferred by Provider
Musculoskeletal: No Clubbing, No Cyanosis and No Edema
Skin: No Rash
Neuro: AO x 3 and Nonfocal/grossly intact
Psych: Calm
Laboratory Results
-
02/14/24 16:36
Laboratory Results
Total Bilirubin Cancelled 02/14/24 16:36
AST Cancelled 02/14/24 16:36
ALT Cancelled 02/14/24 16:36
Alkaline Phosphatase Cancelled 02/14/24 16:36
Troponin I Cancelled 02/14/24 16:36
Data Reviewed
-
Lab Data: Labs Reviewed by me
Impression/Plan
-
#lightheaded/palpitation r/o ACS
-pacer interrogated with 8.5 Mins run of V tach
-hold eliquis in case cardiac cath tomorrow
-cardiology consulted
-as per cards, if recurrent V tach, consider amiodarone.
-trend trop and EKG
#thrombocytopenia chronic
-platelets stable at 111
-ctm
#Tachy-yair syndrome
-s/p [employer] DC PPM implantation on 08/06/2022
#Paroxysmal Afib
-s/p PVI 11/02/19
-s/p PVI 12/15/19
-diltiazem continued
-hold eliquis
#Severe symptomatic
- s/p TAVR
#hxt of CAD
#hxt of CHF
-patient not in acute exacerbation
-strict I &O
-daily weight
#essential HTn
-Bp stable in ER
#HLD
-statin and Zetia continued
#hxt of CKD 3a
-ctm
#hypothyroidism
-levothyroxine continued
#GERD
-PPI continued
#DVT prophylaxis
-scd
#CODE status
-full code
--- NOTE | 2024-02-14 17:30 | EDRN ---
HOpitalist MANAGER ROUTE Les Jaimes in to see pt at this time.
--- NOTE | 2024-02-14 17:40 | EDRN ---
mail carrier technician Bala in to see pt at this time.
--- NOTE | 2024-02-14 17:48 | EDRN ---
Dr. Zimmerman in to see pt at this time.
[2024-02-14 17:51] LABS: ALT (SGPT) 22 U/L (0-50); AST (SGOT) 37 U/L (17-59); Albumin 3.9 g/dl (3.5-5.0); Alkaline Phosphatase 147 U/L (38-126); Blood Urea Nitrogen 23 mg/dl (9-20); Calcium 9.1 mg/dl (8.4-10.2); Carbon Dioxide 25 mmol/L (22-30); Chloride 104 mmol/L (98-107); Estimated Creatinine Clearance 65 ml/min; Glucose 84 mg/dl (70-99); Potassium 4.3 mmol/L (3.5-5.1); Sodium 139 mmol/L (135-145); Total Protein 6.6 g/dl (6.3-8.2); eGFR > 60.00
[2024-02-14 18:03] LABS: Troponin I < 0.012 ng/ml
[2024-02-14 18:10] LABS: Magnesium 1.9 mg/dl (1.6-2.3)
[2024-02-14] MEDS: LIPITOR PO (20:57)
[2024-02-14] MEDS: PROTONIX 40 MG PO (21:01)
[2024-02-14] MEDS: CARDIZEM CD 120 MG PO (21:01)
--- NOTE | 2024-02-14 21:31 | PTCARENOTE ---
received patient from the ED. AAOx3. son at the bedside. patient denies any cp at this time. educated patient to inform RN with any changes. Paced rhythm on tele with PVCs 80s. bp 148/84. denies any sob/palps. steady on his feet oob. reviewed plan
of care with patient and verbalized understanding. EKG and troponin completed per order. NPO at midnight for a possible cardiac cath. call talbot within reach.
[2024-02-14 22:04] LABS: Troponin I < 0.012 ng/ml
[2024-02-15] VITALS (10 sets, daily range): BP systolic 123–169; BP diastolic 77–90; PULSE 82; O2SAT 97; BMI 23.8
[2024-02-15 01:02] LABS: Troponin I < 0.012 ng/ml
[2024-02-15 05:05] LABS: Hematocrit 35.1 % (39.0-52.0); Hemoglobin 12.2 g/dL (13.0-18.0); Mean Corp Hgb Conc. 34.8 g/dL (33.0-37.0); Mean Corpuscular Hgb 30.9 pg (27.0-31.0); Mean Corpuscular Volume 88.9 fL (80.0-94.0); Mean Platelet Volume 9.4 fL (7.4-10.4); Platelet Count 126 10^3/uL (130-400); Red Blood Cell Count 3.95 10^6/uL (4.70-6.10); Red Cell Dist. Width 15.2 % (11.5-14.5); White Blood Cell Count 4.5 10^3/uL (4.8-10.8)
[2024-02-15 05:32] LABS: Blood Urea Nitrogen 19 mg/dl (9-20); Calcium 9.2 mg/dl (8.4-10.2); Carbon Dioxide 23 mmol/L (22-30); Chloride 106 mmol/L (98-107); Estimated Creatinine Clearance 65 ml/min; Glucose 86 mg/dl (70-99); HDL Cholesterol 52 mg/dl; LDL Cholesterol, Calculated 35 mg/dl; Potassium 4.3 mmol/L (3.5-5.1); Sodium 141 mmol/L (135-145); Total Cholesterol 100 mg/dl (50-199); Triglyceride 65 mg/dl (10-149); Very Low Density Lipoprotein 13 mg/dl (0-30); eGFR > 60.00
[2024-02-15] MEDS: SYNTHROID 50 MCG PO (07:23)
--- NOTE | 2024-02-15 07:32 | CON.CAR ---
Addendum entered and electronically signed by Chuck Leora MD 02/15/24 10:49:
Patient seen, interviewed and examined by me.
Well-appearing, no acute distress
Regular rate and rhythm with ectopy and with normal S1 and S2, no S3 no S4. There is a grade 1/6 apical holosystolic murmur and no rubs. PMI is normally placed.
Lungs are clear to auscultation bilaterally without wheezes rales or rhonchi.
Abdomen soft nontender nondistended with normoactive bowel sounds
Extremities show trace pretibial edema bilaterally no clubbing or cyanosis.
Neurologic exam is grossly nonfocal.
He had 8 minutes of self terminating ventricular tachycardia noted on his device, symptomatic.
EKG has demonstrated frequent PVCs of outflow tract origin. He has been symptomatic with this. Poor intolerance to metoprolol, diltiazem and has experienced amiodarone toxicity.
As an outpatient he and I have had discussions regarding consideration for a type III antiarrhythmic drug. He has been intolerant of metoprolol so I am concerned about sotalol. Preferentially I recommended consideration for dofetilide. He now
presents with symptomatic sustained ventricular tachycardia and known background coronary artery disease as well as abnormal stress test. I had a long discussion with the patient today. I have recommended:
-Antiarrhythmic drug loading with dofetilide
-We did discuss the possibility of ablation but given his prior TAVR or I would reserve this only if drug therapy failed.
-I have also recommended coronary angiography to further evaluate the significance of his previously moderate coronary artery disease particular given the new clinical finding of sustained ventricular tachycardia.
Patient tells me he agrees.
Prior coronary angiography reviewed with interventional cardiology and there is concern that he may require complex left circumflex disease. Last dose of Eliquis was yesterday. Preferentially we would hold off on coronary angiography and
intervention for another 24 hours. I think this is reasonable.
Therefore we will proceed as follows:
- Initiate dofetilide antiarrhythmic drug loading
- Plan for coronary angiography tomorrow while we continue to hold Eliquis anticoagulation.
Total time, 55 min
Original Note:
Consultation
Consultation Request
Date/Time Consultation Requested: 02/14/2024
Date/Time Consultation Performed: 02/15/2024
Requesting Provider: Dr. Zimmerman
Performing Provider: Surekha Garcia PA-C for Dr. Alesha Loera
Reason for Consultation: Lightheadedness, palpitations, NSVT
Medical History
-
History of Present Illness:
Patient is an 83 -year-old male with past medical history significant for moderate nonobstructive coronary artery disease on cardiac catheterization in June 2022, symptomatic aortic stenosis status post transfemoral TAVR on 07/31/2022, paroxysmal
atrial fibrillation/flutter status post PVI ablations in October 2019, SSS s/p dual chamber Medtronic PPM, hypertension, hyperlipidemia and paralyzed hemidiaphragm. Patient was recently seen in cardiology office in January 2024 and noted to have
ongoing symptomatic PVCs with poor intolerance to metoprolol, diltiazem and amiodarone toxicity. Plan was for eventual elective admission for [facility]. He has a longstanding history of intermittent dizziness/lightheadedness felt to be from
symptomatic PVCs. He felt his usual lightheaded and dizziness on a.m. of 02/14/2024. However in the afternoon he developed worsening of symptoms with intermittent tachycardia as well as chest tightness which lasted approximately 8-9 minutes
prompting him to come to emergency room on 02/15/2024. Symptoms stopped abruptly in route to hospital. Interrogation of pacemaker showed approximately 8-1/2 minutes of ventricular tachycardia which correlated with patient's symptoms. Patient
denies having chest pain on a daily basis. EKG showed AV paced rhythm. Troponin x 2 negative. Electrolytes unremarkable.
At time of this evaluation patient feeling well. Continues to have some intermittent dizziness/lightheadedness. He denies further episodes of chest pain or shortness of breath.
PMH:
Severe symptomatic
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
chronic HFpEF
Moderate CAD by cath 07/03/2022 (50-60% mid LCx, 50-60% RCA)
Paroxysmal Afib/Aflutter
prior PVI 11/02/2019
s/p PVI and additional AF ablation 12/15/2019
WPW remote ablation in
Sick sinus syndrome
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
HTN
Hyperlipidemia
Diverticulosis
Kidney stones
SERENE
h/o paralyzed hemidiaphragm
CKD
Gerd w/ Ferrell esophagus
Past Medical History
Past Medical History: Other (see HPI)
Past Surgical History: Cardiac (s/p DC Medtronic PPM, s/p TAVR 07/31/2022, s/p PVI ablation 11/02/2019 & 12/15/2019, WPW ablation ), Cholecystectomy, Orthopedic (Right total knee replacement, bilateral shoulder replacements, right total hip
replacement, Mohs surgery, multiple back injections) and Other (Right total knee replacement, bilateral shoulder replacements, right total hip replacement, Mohs surgery, multiple back injections)
Social History
Tobacco: Former Smoker
Alcohol: Occasional (once a month)
Drug: None
Personal:
Living: With Family
Employment: Retired
Family History
Family History: CAD (Father had coronary artery disease, mother of [place]/CAD, Brother at age 83 of heart disease)
Allergies / Home Medications
Allergy/AdvReac Type Severity Reaction Status Date / Time
ibuprofen Allergy barrets Verified 02/14/24 15:54
esophogus
lisinopril Allergy upset Verified 02/14/24 15:54
stomach/tired
tramadol Allergy Vomiting Verified 02/14/24 15:54
�Medication �Instructions �Recorded �Confirmed �Type
ezyheiww-rdi-xdfof acid 0.4 1 ea PO DAILY Supplement 07/21/17 02/14/24 History
mg-lycopene 300 mcg-lutein 250 mcg
tablet (Centrum Silver)
apixaban 5 mg tablet (Eliquis) 5 mg PO BID #90 tabs 10/02/17 02/14/24 Rx
cholecalciferol (vitamin D3) 25 25 mcg PO DAILY Supplement 07/02/22 02/14/24 History
mcg (1,000 unit) capsule (Vitamin
D3)
levothyroxine 50 mcg tablet 50 mcg PO DAILY Thyroid 07/02/22 02/14/24 History
(Synthroid)
acetaminophen 500 mg tablet 1,000 mg PO Q6HPRN PRN mild pain 07/03/22 02/14/24 History
ferrous sulfate 325 mg (65 mg 325 mg PO DAILY Supplement ##0 07/24/22 02/14/24 History
iron) tablet
ascorbic acid (vitamin C) 1,000 mg 1,000 mg PO DAILY 02/14/24 02/14/24 History
tablet (Vitamin C)
atorvastatin 80 mg tablet 80 mg PO NOON 02/14/24 02/14/24 History
coenzyme Q10 100 mg capsule 100 mg PO DAILY 02/14/24 02/14/24 History
(CoQ-10)
diltiazem HCl 120 mg 120 mg PO BID 02/14/24 02/14/24 History
capsule,extended release 24 hr,
controlled
ezetimibe 10 mg tablet 10 mg PO NOON 02/14/24 02/14/24 History
pantoprazole 40 mg tablet,delayed 40 mg PO BID 02/14/24 02/14/24 History
release
potassium citrate 99 mg capsule 99 mg PO BID 02/14/24 02/14/24 History
Review of Systems
-
History Source: Patient
All other systems: Negative unless noted
Physical Exam
Vital Signs
Temp Pulse Resp BP Pulse Ox
97.7 F 70 18 134/77 95
02/15/24 04:49 02/15/24 06:15 02/15/24 04:49 02/15/24 04:50 02/15/24 04:49
GEN: No distress, awake, Ox3, resting comfortably in bed
HEENT: supple, anicteric, mmm
LUNGS: Mildly decreased at right lung base otherwise CTA, no wheezes/rales
CV: Reg, S1/S2, 1/6 sys murmur at apex
ABD: soft, BS+, NT/ND
EXT: No edema, clubbing or cyanosis
NEURO: Gross non-focal
SKIN: No rash, warm, dry, pink
Lab Results
02/15/24 04:52
02/15/24 04:52
Troponin I < 0.012 ng/ml 02/15/24 00:29
Impression / Plan
-
PCP: Dr. Adams
Manager Community Outreach: Dr. RACQUEL Montes De Oca
Noodle Press Operator: Dr. Chuck Loera
Impression:
Presented 02/14/2024 dizziness/lightheadedness, palpitations/tachycardia, chest tightness
Ventricular tachycardia on interrogation of pacemaker (lasted approximately 8 minutes 22 seconds)
Severe symptomatic
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
chronic HFpEF
Moderate CAD by cath 07/03/2022 (50-60% mid LCx, 50-60% RCA)
Paroxysmal Afib/Aflutter
prior PVI 11/02/2019
s/p PVI and additional AF ablation 12/15/2019
WPW remote ablation in
Sick sinus syndrome
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
HTN
Hyperlipidemia
Diverticulosis
Kidney stones
SERENE
GERD
h/o paralyzed hemidiaphragm
CKD
Gerd w/ Ferrell esophagus
Echo 09/03/2023: EF 53%, mild concentric LVH. Mild to moderate MR. Well-seated #29 mm Palmer Jennifer TAVR with peak/mean gradients of 19/11 mmHg, respectively. Mild TR, PAP 37 mmHg. Mildly dilated ascending ao 4.0 cm.
Echo 06/23/2022:�EF 55 to 60%, trace MR, severe with mild AR, peak/mean gradients 62/37 mmHg
Echo 08/01/2022: Preserved ejection fraction normal regional wall motion, 29 mm Palmer TAVR is well seated, stable gradients peak/mean 21/13 mmhg.� No aortic�regurgitation is seen.
Lexiscan nuclear stress test 09/01/2023: Fixed basal and mid inferolateral defect consistent with soft tissue attenuation. Mild global hypokinesis, EF 48%.
Cardiac catheterization 07/03/2022:LM 30 to 40% distal stenosis with negative IFR at 0.94. LAD 20-30 distal stenosis. Ramus 30% ostial. LCX 50-60% mid with IFR negative at 0.95. RCA 50 to 60% ostial with IFR negative at 0.97
Plan:
-Presented 02/14/2024 dizziness/lightheadedness, palpitations/tachycardia, chest tightness. Interrogation of pacemaker showed 8 minutes 22 seconds of VT that correlated with patient's symptoms.
-Known history of symptomatic PVCs with high PVC burden greater than 300 an hour
-Intolerance to beta-lurdes (Toprol) due to persistent lightheadedness and ineffective response with Diltiazem. 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
-Would proceed with initiation of Tikosyn 500 mcg twice daily per protocol
-EKG AV paced rhythm with frequent PVCs, QTc 457 ms (baseline per Tikosyn load)
-Continue to monitor on telemetry
-Daily BMP and mag level. Keep K+ >4, mag >2. Replete mag
Noted to have non-obstructive CAD on cath 07/03/2022 and stress test August 2023 demonstrated fixed basal and inferolateral defect consistent with soft tissue attenuation
-- Troponin negative x 2, denies chest pain and reports he had chest pain was when he was in sustained arrhythmia/VT.
-- Discussed w/ EP and patient. Patient agreeable to proceed with cardiac cath to rule out progression of his CAD
-- Lipids at goal TC 100, HDL 52, LDL 35, triglycerides 65.
-- Continue aggressive medical management for CAD. ASA, statin. Intolerant to beta-lurdes
-Paroxysmal atrial fibrillation
-- History of multiple cardioversions and ablation October 2019 and November 2019
-- Continue Eliquis (currently on hold for cath)
-- History of amiodarone toxicity would avoid
-Hypertension
-- Blood pressure reasonably controlled. Previously on amlodipine however now on diltiazem.
-- Given initiation of Tikosyn consider transitioning to amlodipine if QTc should prolonged
-History of GERD/Ferrell esophagus. On pantoprazole BID
HPI 02/15/2024:
Patient is an 83 -year-old male with past medical history significant for moderate nonobstructive coronary artery disease on cardiac catheterization in June 2022, symptomatic aortic stenosis status post transfemoral TAVR on 07/31/2022, paroxysmal
atrial fibrillation/flutter status post PVI ablations in October 2019, SSS s/p dual chamber Medtronic PPM, hypertension, hyperlipidemia and paralyzed hemidiaphragm. Patient was recently seen in cardiology office in January 2024 and noted to have
ongoing symptomatic PVCs with poor intolerance to metoprolol, ineffective response with Cardizem and amiodarone toxicity. Plan was for eventual elective admission for Tikosyn. He has a longstanding history of intermittent dizziness/lightheadedness
felt to be from symptomatic PVCs. He felt his usual lightheaded and dizziness on a.m. of 02/14/2024. However in the afternoon he developed worsening of symptoms with intermittent tachycardia as well as chest tightness which lasted approximately 8-9
minutes prompting him to come to emergency room on 02/15/2024. Symptoms stopped abruptly in route to hospital. Interrogation of pacemaker showed approximately 8-1/2 minutes of ventricular tachycardia which correlated with patient's symptoms.
Patient denies having chest pain on a daily basis. EKG showed AV paced rhythm. Troponin x 2 negative. Electrolytes unremarkable.
At time of this evaluation patient feeling well. Continues to have some intermittent dizziness/lightheadedness. He denies further episodes of chest pain or shortness of breath.
Data Reviewed
-
EKG: Report Reviewed by me, Discussed with Physician, Discussed with Nurse and Discussed with Patient
Labs: Labs Reviewed by me, Discussed with Physician, Discussed with Nurse and Discussed with Patient
Old Records: Reviewed
--- NOTE | 2024-02-15 07:48 | W.PN.HOSP.TC ---
Today's Communication/Plan
-
see A/P
Assessment / Plan
Assessment / Plan
83 yo M with PMH significant for paroxysmal A-Fib, WPW, hypertension and aortic stenosis who presented to ED complaining of lightheadedness and palpitations. Patient reports lightheadedness that is typically present in the AM- but then resolves
fairly quickly. On DOA, he felt lightheaded well past noon which is unusual for him. He then began to note palpitations / racing heartbeat. His symptoms persisted / progressed and he presented to the ED for further evaluation. En route to the ED,
the patient also developed substernal chest discomfort. His symptoms all resolved completely by the time her arrived in the ED.
PPM was interrogated in the ED and shows episode of VT that correlates with his palpitations and chest discomfort.
A/P:
# Ventricular Tachycardia, resolved
Per card, can begin IV amiodarone protocol if any recurrent VT is appreciated.
Cardiology evaluation for additional recommendations.
Note that patient was scheduled to be hospitalized for Tikosyn loading in about a week or so.
# Paroxysmal A-Fib / Atrial Tachycardia
# s/p PVI 11/02/19, s/p PVI 12/15/19
Cont diltiazem
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
# Severe Aortic Stenosis s/p TAVR
# ASCVD / PAD/ CAD
# Benign Hypertension
# Hypothyroidism
Cont levothyroxine
# GERD
PPI
DVT ppx: SCD
FC
Anticipated Discharge: > 48 hours
Subjective/Interval History
-
Date of Service: February 15, 2024
Objective Data
-
Labs:
Laboratory Results
02/15/24
04:52
WBC 4.5 L
Hgb 12.2 L
Hct 35.1 L
Plt Count 126 L
Sodium 141
Potassium 4.3
Chloride 106
Carbon Dioxide 23
BUN 19
Creatinine 1.0
Glucose 86
Calcium 9.2
Vital Signs:
Vital Signs
Temp Pulse Resp BP Pulse Ox
36.8 C 70 18 134/77 98
02/15/24 07:42 02/15/24 06:15 02/15/24 07:42 02/15/24 04:50 02/15/24 07:42
I&O
02/14/24 02/15/24 02/16/24
06:59 06:59 06:59
Output Total 750 / 750
Balance -750 / -750
Review of Systems
-
All other systems: Reviewed and negative
Physical Exam
-
General: Well Developed, Well Nourished, No Apparent Distress, Comfortable and Conversant; Negative Respiratory Distress
HEENT: Normocephalic, Atraumatic, Nose Appears Normal and Ears Appear Normal; Negative Oxygen
Respiratory: Clear to Auscultation and Non Labored Respirations; Negative Accessory Resp Muscle Use
Cardiac: Regular Rhythm and S1/S2
GI: Soft, Nontender, Nondistended and Normal Bowel Sounds
Skin: Warm and Dry
Neuro: Awake, Alert, Oriented and AO x 3
Psych: Calm and Intact Judgement/Insight
Data Reviewed
-
Labs: Labs Reviewed by me
[2024-02-15 08:22] LABS: Glycohemoglobin (HgbA1c) 5.5 % (4.0-5.6)
[2024-02-15] MEDS: CARDIZEM CD 120 MG PO (09:18)
[2024-02-15] MEDS: FEOSOL 325 MG PO (09:18)
--- NOTE | 2024-02-15 09:19 | W.CARD.TIKOS ---
Addendum entered and electronically signed by Chuck Loera MD 02/15/24 10:38:
.
Original Note:
Initiate Tikosyn
-
I verify that the patient has not taken any verapamil (Isoptin/Calan), ketoconazole (Nizoral), cimetidine (Tagamet), trimethoprim (Trimpex), trimethoprim/sulfamethoxazole (Bactrim), megesterol (Megace), prochlorperazine (Compazine),
hydrochlorothiazide (HCTZ), dolutegravir (Tivicay) or any Class I or Class III anti-arrhythmic within the last three days
AND
I verify that the patient has not taken amiodarone within the last THREE months, or that the patient's amiodarone plasma concentration is <0.3 mcg/mL.
Creatinine 1.0 mg/dL (0.7-1.3) 02/15/24 04:52
Estimated Creat Clear 65 ml/min 02/15/24 04:52
Does patient have a Ventricular Conduction Abnormality: Yes
I have assessed the baseline QTc interval (using QT for heart rate less than 60 bpm) and deemed the patient is appropriate for Dofetilide therapy. I understand that Tikosyn is contraindicated if the QTc is >440msec (500msec in patients with
ventricular conduction abnormalities).
Baseline QTc (in msec): 457
QTc interval is greater than 440msec without conduction abnormality OR greater than 500msec with a conduction abnormality, but acceptable to proceed per Cardiology attending.
Reason for Administration with Prolonged QTc: Paced Rhythm
Ordering Physician: Chuck Loera
[2024-02-15] MEDS: TIKOSYN 500 MCG PO ×2 (10:15→21:19)
[2024-02-15] MEDS: MAGNESIUM OXIDE 500 MG PO (10:17)
[2024-02-15] MEDS: LOW STRENGTH ASPIRIN 324 MG PO (10:18)
[2024-02-15] MEDS: PROTONIX 40 MG PO (10:42)
[2024-02-15] MEDS: LIPITOR 80 MG PO (13:55)
[2024-02-15] MEDS: ZETIA 10 MG PO (14:48)
--- NOTE | 2024-02-15 17:25 | CM ---
spoke to pt in room, he is prev indep, lives with his in a 2 story home with a first floor set up and no steps to enter. he denies any dc planning needs or dme's. plan is for dc to home when medically stale.
--- NOTE | 2024-02-15 18:00 | PTCARENOTE ---
Pt received this am with no c/o of chest pain or sob. Pt later was walking with PT in the hallway and stated he felt some lightheadedness. Pt instructed to call nurse when has to use the BR. Pt stated that he felt better but sometimes feels mild
lightheadedness. Tikosyn started this am and tolerating without any issues.
[2024-02-15] MEDS: PROTONIX PO (19:51)
[2024-02-15] MEDS: CARDIZEM CD PO (21:44)
[2024-02-16] VITALS (14 sets, daily range): BP systolic 105–137; BP diastolic 69–89; BMI 23.6
--- NOTE | 2024-02-16 03:04 | PTCARENOTE ---
Tele remains AV paced w/ occasional PVCs. HR in the 70's at rest. Denies any lightheadedness while laying in bed. 2nd dose of Tikosyn administered, EKG 2hrs post per protocol w/ a result of 458. Patient denies any pain. Aware to remain NPO for
planned cath on 02/15. Call talbot within reach
[2024-02-16 04:45] LABS: Hematocrit 37.2 % (39.0-52.0); Hemoglobin 12.9 g/dL (13.0-18.0); Mean Corp Hgb Conc. 34.7 g/dL (33.0-37.0); Mean Corpuscular Hgb 31.9 pg (27.0-31.0); Mean Corpuscular Volume 92.1 fL (80.0-94.0); Mean Platelet Volume 9.6 fL (7.4-10.4); Platelet Count 138 10^3/uL (130-400); Red Blood Cell Count 4.04 10^6/uL (4.70-6.10); Red Cell Dist. Width 15.2 % (11.5-14.5); White Blood Cell Count 4.9 10^3/uL (4.8-10.8)
[2024-02-16 05:02] LABS: Blood Urea Nitrogen 21 mg/dl (9-20); Carbon Dioxide 23 mmol/L (22-30); Chloride 105 mmol/L (98-107); Estimated Creatinine Clearance 72 ml/min; Glucose 95 mg/dl (70-99); Potassium 4.7 mmol/L (3.5-5.1); Sodium 139 mmol/L (135-145); eGFR > 60.00
[2024-02-16] MEDS: SYNTHROID 50 MCG PO (06:01)
--- NOTE | 2024-02-16 07:41 | W.PN.HOSP.TC ---
Today's Communication/Plan
-
see A/P
Assessment / Plan
Assessment / Plan
83 yo M with PMH significant for paroxysmal A-Fib, WPW, hypertension and aortic stenosis who presented to ED complaining of lightheadedness and palpitations. Patient reports lightheadedness that is typically present in the AM- but then resolves
fairly quickly. On DOA, he felt lightheaded well past noon which is unusual for him. He then began to note palpitations / racing heartbeat. His symptoms persisted / progressed and he presented to the ED for further evaluation. En route to the ED,
the patient also developed substernal chest discomfort. His symptoms all resolved completely by the time her arrived in the ED.
PPM was interrogated in the ED and shows episode of VT that correlates with his palpitations and chest discomfort.
A/P:
# Ventricular Tachycardia, resolved
Initiated dofetilide antiarrhythmic drug loading
For cath today 02/15
Card on board
# Paroxysmal A-Fib / Atrial Tachycardia
# s/p PVI 11/02/19, s/p PVI 12/15/19
Cont diltiazem
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
# Severe Aortic Stenosis s/p TAVR
# ASCVD / PAD/ CAD
# Benign Hypertension
# Hypothyroidism
Cont levothyroxine
# GERD
PPI
DVT ppx: SCD , RUBBER TI[employer] AND [employer]UB[employer] SUPERVISOR Eliquis on hold
FC
Anticipated Discharge: > 48 hours
Subjective/Interval History
-
Date of Service: February 16, 2024
Objective Data
-
Labs:
Laboratory Results
02/16/24
04:24
WBC 4.9
Hgb 12.9 L
Hct 37.2 L
Plt Count 138
Sodium 139
Potassium 4.7
Chloride 105
Carbon Dioxide 23
BUN 21 H
Creatinine 0.9
Glucose 95
Calcium 9.0
Vital Signs:
Vital Signs
Temp Pulse Resp BP Pulse Ox
36.6 C 71 18 131/82 95
02/16/24 06:51 02/16/24 04:06 02/16/24 06:51 02/16/24 04:06 02/16/24 06:51
I&O
02/15/24 02/16/24 02/17/24
06:59 06:59 06:59
Intake Total 240 / 240
Output Total 750 / 750
Balance -750 / -750 240 / 240
Review of Systems
-
All other systems: Reviewed and negative
Physical Exam
-
General: Well Developed, Well Nourished, No Apparent Distress, Comfortable and Conversant; Negative Respiratory Distress
HEENT: Normocephalic, Atraumatic, Nose Appears Normal and Ears Appear Normal; Negative Oxygen
Respiratory: Clear to Auscultation and Non Labored Respirations; Negative Accessory Resp Muscle Use
Cardiac: Regular Rhythm and S1/S2
GI: Soft, Nontender, Nondistended and Normal Bowel Sounds
Skin: Warm and Dry
Neuro: Awake, Alert, Oriented and AO x 3
Psych: Calm and Intact Judgement/Insight
Data Reviewed
-
Labs: Labs Reviewed by me
[2024-02-16] MEDS: CARDIZEM CD PO (08:16)
[2024-02-16] MEDS: PROTONIX 40 MG PO ×2 (08:24→20:07)
[2024-02-16] MEDS: LOW STRENGTH ASPIRIN 81 MG PO (08:24)
[2024-02-16] MEDS: FEOSOL 325 MG PO (08:24)
[2024-02-16] MEDS: TIKOSYN 500 MCG PO ×2 (08:27→20:07)
--- NOTE | 2024-02-16 10:02 | ITS.CL.CATH ---
Stopper Setter - Catheterization
Cardiac Catheterization
Procedure Report:
LEFT HEART CATHETERIZATION
Date of Procedure: February 16, 2024
Referring: Chuck Loera
PROCEDURES:
1. Left heart catheterization, coronary angiogram
2. Ultrasound-guided access
3. IFR of ostial right coronary artery.
INDICATION: Episode of self-limiting sustained ventricular tachycardia. Troponins negative x 3.
ACCESS: Right Radial artery, 6Fr sheath, under US guidance
HEMODYNAMICS : (mmHg)
AO (s/d) : 129/75
LV (s/d): 138/7
LVEDP: 12mmHG
CORONARY FINDINGS
DOMINANCE: Right
LEFT MAIN: The left main artery is a large caliber vessel which gives rise to large LAD and medium caliber LCx. There is stable 20-30% distal left main stenosis.
LEFT ANTERIOR DESCENDING: The left anterior descending artery is a large caliber vessel which gives rise to multiple small to medium caliber diagonal branches. There is mild diffuse disease.
RAMUS INTERMEDIUS: Ther ramus intermedius artery is a small to medium caliber vessel. There is a 30% ostial RI stenosis, otherwise minimal luminal irregularities.
CIRCUMFLEX: The left circumflex artery is a medium caliber vessel which gives rise to large obtuse marginal branch before terminating into a dimunitve vessel. There is a stable 50% mid LCx stenosis.
RIGHT CORONARY ARTERY: The right coronary artery is a large caliber vessel which gives rise to RPDA and RPLB. There is 60 to 70% ostial RCA stenosis which was iFR negative at 0.97.
HEMODYNAMIC ASSESSMENT OF THE OSTIAL RCA WITH A [place] OMNI WIRE: The origin of the right coronary artery was cannulated with a 6 Fr 3DRC guide catheter.� Intravenous heparin was administered and the ACT was followed during the procedure.� Two
hundred micrograms of intracoronary nitroglycerin was given through the guide catheter.� A [place] Omni wire was advanced to the guide catheter tip and normalized in the ascending aorta by disengaging the guide out of the RCA ostium.� The Omni wire
was then carefully manipulated across the stenosis in the ostial RCA with the iFR serially measuring above the ischemic threshold at 0.97 x 3.� The Omni wire was then pulled back to the ascending aorta where the Pd/Pa measured 1.0 confirming no
baseline drift in pressure readings.� �
RADIATION SUMMARY: Fluoro Time (min): 9.4 Dose (mGy): 533.29, DAP (Gy.cm2) : 45.93
Closure Device: Vascular band over right radial artery, 10 cc of air
CONCLUSIONS
1. Moderate coronary artery disease.
2. Normal LVEDP.
RECOMMENDATIONS
1. Continued management of ventricular tachycardia with dofetilide. Discussed with electrophysiology, plan to hold off on any further AV aman blockers like calcium channel blockers or beta-blockers for now.
2. Wean radial band per protocol. As long as no issues at the access site plan to resume Eliquis starting tonight.
3. Aggressive management of cardiovascular risk factors.
Copy to: Royce Montes De Oca, Chuck Loera
Missy Muñiz MD, [facility], [facility]
[2024-02-16] MEDS: ZETIA 10 MG PO (12:20)
[2024-02-16] MEDS: LIPITOR 80 MG PO (12:20)
--- NOTE | 2024-02-16 14:02 | W.PN.CARDCBS ---
Addendum entered and electronically signed by Chuck Loera MD 02/16/24 15:20:
Patient seen, interviewed and examined by me.
Well-appearing, no acute distress
Regular rate and rhythm with normal S1 and S2, no S3 no S4. There is a grade 1/6 apical holosystolic murmur and no rubs. PMI is normally placed.
Lungs are clear to auscultation bilaterally without wheezes rales or rhonchi.
Abdomen soft nontender nondistended with normoactive bowel sounds
Extremities show trace pretibial edema bilaterally no clubbing or cyanosis.
Neurologic exam is grossly nonfocal.
Agree with advanced practice professionals assessment and plan as noted below.
Reviewed EKGs and telemetry, remaining in sinus rhythm and over the past 24 hours a paucity of PVCs. Corrected QT interval stable while loading with dofetilide.
Additionally, coronary angiography today to assess for any worsening of his known moderate coronary artery disease as potential etiology for sustained self terminating ventricular tachycardia was performed and coronary artery disease is stable. No
intervention warranted.
Continue with dofetilide loading as per protocol
Stop dofetilide
Resume Eliquis anticoagulation.
Continue to follow EKGs as per protocol and possible discharge to home tomorrow.
Original Note:
Today's Communication / Plan
-
cath today
tikosyn loading
resume eliquis when able
Impression / Plan
-
PCP: Dr. Adams
Editor Newspaper: Dr. RACQUEL Montes De Oca
Hair Or Beauty Salon Assistant: Dr. Chuck Loera
Impression:
Presented 02/14/2024 dizziness/lightheadedness, palpitations/tachycardia, chest tightness
Ventricular tachycardia on interrogation of pacemaker (lasted approximately 8 minutes 22 seconds)
Severe symptomatic
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
chronic HFpEF
Moderate CAD by cath 07/03/2022 (50-60% mid LCx, 50-60% RCA)
Paroxysmal Afib/Aflutter
prior PVI 11/02/2019
s/p PVI and additional AF ablation 12/15/2019
WPW remote ablation in
Sick sinus syndrome
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
HTN
Hyperlipidemia
Diverticulosis
Kidney stones
SERENE
GERD
h/o paralyzed hemidiaphragm
CKD
Gerd w/ Ferrell esophagus
Echo 09/03/2023: EF 53%, mild concentric LVH. Mild to moderate MR. Well-seated #29 mm Palmer Jennifer TAVR with peak/mean gradients of 19/11 mmHg, respectively. Mild TR, PAP 37 mmHg. Mildly dilated ascending ao 4.0 cm.
Echo 06/23/2022:�EF 55 to 60%, trace MR, severe with mild AR, peak/mean gradients 62/37 mmHg
Echo 08/01/2022: Preserved ejection fraction normal regional wall motion, 29 mm Palmer TAVR is well seated, stable gradients peak/mean 21/13 mmhg.� No aortic�regurgitation is seen.
Lexiscan nuclear stress test 09/01/2023: Fixed basal and mid inferolateral defect consistent with soft tissue attenuation. Mild global hypokinesis, EF 48%.
Cardiac catheterization 07/03/2022:LM 30 to 40% distal stenosis with negative IFR at 0.94. LAD 20-30 distal stenosis. Ramus 30% ostial. LCX 50-60% mid with IFR negative at 0.95. RCA 50 to 60% ostial with IFR negative at 0.97
Plan:
-Presented 02/14/2024 dizziness/lightheadedness, palpitations/tachycardia, chest tightness. Interrogation of pacemaker showed 8 minutes 22 seconds of VT that correlated with patient's symptoms.
-Known history of symptomatic PVCs with high PVC burden greater than 300 an hour
-remains in av paced rhythm with occasional PVCs on review of tele overnight. no further VT noted
-currently in labor commissioner to eval for progression of CAD. last cath from 06/2022 with nonobstructive CAD. trops negative x2
-Intolerance to beta-lurdes (Toprol) due to persistent lightheadedness and ineffective response with Diltiazem, OP dosing presently on hold. 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
-continue tikosyn loading, for 5th dose in AM. QTc stable by most recent EKG
-K/mag stable
-continue asa, statin. LDL 35
-eliquis presently on hold for cath, resume when able
HPI 02/15/2024:
Patient is an 83 -year-old male with past medical history significant for moderate nonobstructive coronary artery disease on cardiac catheterization in June 2022, symptomatic aortic stenosis status post transfemoral TAVR on 07/31/2022, paroxysmal
atrial fibrillation/flutter status post PVI ablations in October 2019, SSS s/p dual chamber Medtronic PPM, hypertension, hyperlipidemia and paralyzed hemidiaphragm. Patient was recently seen in cardiology office in January 2024 and noted to have
ongoing symptomatic PVCs with poor intolerance to metoprolol, ineffective response with Cardizem and amiodarone toxicity. Plan was for eventual elective admission for Tikosyn. He has a longstanding history of intermittent dizziness/lightheadedness
felt to be from symptomatic PVCs. He felt his usual lightheaded and dizziness on a.m. of 02/14/2024. However in the afternoon he developed worsening of symptoms with intermittent tachycardia as well as chest tightness which lasted approximately 8-9
minutes prompting him to come to emergency room on 02/15/2024. Symptoms stopped abruptly in route to hospital. Interrogation of pacemaker showed approximately 8-1/2 minutes of ventricular tachycardia which correlated with patient's symptoms.
Patient denies having chest pain on a daily basis. EKG showed AV paced rhythm. Troponin x 2 negative. Electrolytes unremarkable.
At time of this evaluation patient feeling well. Continues to have some intermittent dizziness/lightheadedness. He denies further episodes of chest pain or shortness of breath.
Progress Note - Editor Newspaper
Subjective
Date of Service: February 16, 2024
for cath today
Objective
Labs:
02/16/24 04:24
02/16/24 04:24
Labs
Hgb 12.9 g/dL (13.0-18.0) L 02/16/24 04:24
Hct 37.2 % (39.0-52.0) L 02/16/24 04:24
Plt Count 138 10^3/uL (130-400) 02/16/24 04:24
Sodium 139 mmol/L (135-145) 02/16/24 04:24
Potassium 4.7 mmol/L (3.5-5.1) 02/16/24 04:24
BUN 21 mg/dl (9-20) H 02/16/24 04:24
Creatinine 0.9 mg/dL (0.7-1.3) 02/16/24 04:24
Glucose 95 mg/dl (70-99) 02/16/24 04:24
Troponins
02/14/24 02/14/24 02/14/24
16:36 17:09 21:18
Troponin I Cancelled < 0.012 < 0.012
02/15/24
00:29
Troponin I < 0.012
Vital Signs and I&O:
Vital Signs
Temp Pulse Resp BP Pulse Ox
97.6 F 70 18 137/89 99
02/16/24 11:27 02/16/24 11:25 02/16/24 11:27 02/16/24 11:25 02/16/24 11:27
Vital Signs
Temp Pulse Resp BP Pulse Ox
97.6 F 70 18 137/89 99
02/16/24 11:27 02/16/24 11:25 02/16/24 11:27 02/16/24 11:25 02/16/24 11:27
Intake & Output
02/14/24 02/15/24 02/16/24 02/17/24
07:59 07:59 07:59 07:59
Intake Total 240 / 240 0 / 0
Output Total 750 / 750
Balance -750 / -750 240 / 240 0 / 0
[2024-02-16 14:25] LABS: ACT-LR - POC 306 Seconds (116-155)
[2024-02-16] MEDS: ELIQUIS 5 MG PO (20:07)
--- NOTE | 2024-02-16 23:14 | PTCARENOTE ---
R radial dsg is c/d/i. Tikosyn dose #4 administered as ordered. EKG obtained per protocol. QTC 456. Pt has no c/o dizziness/discomfort/pain at this time. Tele- MALARIOLOGIST. HR 70s. Currently in bed; call antione w/in reach.
[2024-02-17 02:40] VITALS: BP 122/80
[2024-02-17 03:04] LABS: Hematocrit 35.1 % (39.0-52.0); Hemoglobin 12.2 g/dL (13.0-18.0); Mean Corp Hgb Conc. 34.8 g/dL (33.0-37.0); Mean Corpuscular Hgb 30.7 pg (27.0-31.0); Mean Corpuscular Volume 88.4 fL (80.0-94.0); Mean Platelet Volume 9.5 fL (7.4-10.4); Platelet Count 131 10^3/uL (130-400); Red Blood Cell Count 3.97 10^6/uL (4.70-6.10); Red Cell Dist. Width 15.2 % (11.5-14.5); White Blood Cell Count 4.3 10^3/uL (4.8-10.8)
[2024-02-17 03:35] LABS: Blood Urea Nitrogen 23 mg/dl (9-20); Calcium 8.8 mg/dl (8.4-10.2); Carbon Dioxide 21 mmol/L (22-30); Chloride 105 mmol/L (98-107); Estimated Creatinine Clearance 65 ml/min; Glucose 133 mg/dl (70-99); Potassium 4.5 mmol/L (3.5-5.1); Sodium 139 mmol/L (135-145); eGFR > 60.00
[2024-02-17] MEDS: SYNTHROID 50 MCG PO (06:21)
--- NOTE | 2024-02-17 08:03 | W.PN.HOSP.TC ---
Addendum entered and electronically signed by Nelly Lundy MD 02/17/24 14:31:
total DC time 38 min
Original Note:
Today's Communication/Plan
-
see A/P
Assessment / Plan
Assessment / Plan
83 yo M with PMH significant for paroxysmal A-Fib, WPW, hypertension and aortic stenosis who presented to ED complaining of lightheadedness and palpitations. Patient reports lightheadedness that is typically present in the AM- but then resolves
fairly quickly. On DOA, he felt lightheaded well past noon which is unusual for him. He then began to note palpitations / racing heartbeat. His symptoms persisted / progressed and he presented to the ED for further evaluation. En route to the ED,
the patient also developed substernal chest discomfort. His symptoms all resolved completely by the time her arrived in the ED.
PPM was interrogated in the ED and shows episode of VT that correlates with his palpitations and chest discomfort.
A/P:
# Ventricular Tachycardia, resolved
Initiated dofetilide antiarrhythmic drug loading
s/p cardiac cath 02/15: noted moderate coronary artery disease. Normal LVEDP.
Card on board
# Paroxysmal A-Fib / Atrial Tachycardia
# s/p PVI 11/02/19, s/p PVI 12/15/19
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
resumed ELECT[employer]IC WELDER HEL[employer] Eliquis
# Severe Aortic Stenosis s/p TAVR
# ASCVD / PAD/ CAD
# Benign Hypertension
# Hypothyroidism
Cont levothyroxine
# GERD
PPI
DVT ppx: resumed ELECT[employer] WEL[employer] Eliquis
FC
Anticipated Discharge: Within 24 hours
Subjective/Interval History
-
Date of Service: February 17, 2024
Objective Data
-
Labs:
Laboratory Results
02/17/24
02:49
WBC 4.3 L
Hgb 12.2 L
Hct 35.1 L
Plt Count 131
Sodium 139
Potassium 4.5
Chloride 105
Carbon Dioxide 21 L
BUN 23 H
Creatinine 1.0
Glucose 133 H
Calcium 8.8
Vital Signs:
Vital Signs
Temp Pulse Resp BP Pulse Ox
36.6 C 77 16 122/80 97
02/17/24 02:50 02/17/24 02:40 02/17/24 02:50 02/17/24 02:40 02/17/24 02:50
I&O
02/16/24 02/17/24 02/18/24
06:59 06:59 06:59
Intake Total 240 / 240 200 / 200
Balance 240 / 240 200 / 200
Review of Systems
-
All other systems: Reviewed and negative
Physical Exam
-
General: Well Developed, Well Nourished, No Apparent Distress, Comfortable and Conversant; Negative Respiratory Distress
HEENT: Normocephalic, Atraumatic, Nose Appears Normal and Ears Appear Normal; Negative Oxygen
Respiratory: Clear to Auscultation and Non Labored Respirations; Negative Accessory Resp Muscle Use
Cardiac: Regular Rhythm and S1/S2
GI: Soft, Nontender, Nondistended and Normal Bowel Sounds
Skin: Warm and Dry
Neuro: Awake, Alert, Oriented and AO x 3
Psych: Calm and Intact Judgement/Insight
Data Reviewed
-
Labs: Labs Reviewed by me
[2024-02-17 08:17] VITALS: BP 128/79
[2024-02-17] MEDS: ELIQUIS 5 MG PO (08:38)
[2024-02-17] MEDS: FLUSH (NSS) 1 FLUSH IV (08:39)
[2024-02-17] MEDS: PROTONIX 40 MG PO (08:39)
[2024-02-17] MEDS: TIKOSYN 500 MCG PO (08:39)
[2024-02-17] MEDS: FEOSOL 325 MG PO (08:39)
[2024-02-17 08:50] VITALS: BMI 23.7
--- NOTE | 2024-02-17 10:40 | W.PN.CARDCBS ---
Addendum entered and electronically signed by Chuck Loera MD 02/17/24 12:08:
Patient seen, interviewed and examined by me.
Well-appearing, no acute distress
Regular rate and rhythm with normal S1 and S2, no S3 no S4. There is a grade 1/6 apical holosystolic murmur and no rubs. PMI is normally placed.
Lungs are clear to auscultation bilaterally without wheezes rales or rhonchi.
Abdomen soft nontender nondistended with normoactive bowel sounds
Extremities show trace pretibial edema bilaterally no clubbing or cyanosis.
Neurologic exam is grossly nonfocal.
Agree with advanced practice professionals assessment and plan as noted below.
I reviewed with him our findings and treatment plan during this hospital stay. We reviewed his coronary artery angiography findings yesterday which showed stable coronary artery disease.
We discussed that he is doing well on dofetilide. This morning EKG finds corrected QT interval of approximately 480 ms (paced) and telemetry is demonstrated a paucity of PVCs. Dofetilide at this dose seems effective and safe. We have
discontinued diltiazem. Overall from a cardiology standpoint stable for discharge to home today. All of his questions have been answered.
Original Note:
Today's Communication / Plan
-
continue tikosyn. follow QTc
if stable, ok for DC today
stop diltiazem
will arrange OP cardiac follow up
Impression / Plan
-
PCP: Dr. Adams
Delinquent Notice Machine Operator: Dr. RACQUEL Montes De Oca
Research Statistician: Dr. Chuck Loera
Impression:
Presented 02/14/2024 dizziness/lightheadedness, palpitations/tachycardia, chest tightness
Ventricular tachycardia on interrogation of pacemaker (lasted approximately 8 minutes 22 seconds)
Severe symptomatic
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
chronic HFpEF
Moderate CAD by cath 07/03/2022 (50-60% mid LCx, 50-60% RCA)
Paroxysmal Afib/Aflutter
prior PVI 11/02/2019
s/p PVI and additional AF ablation 12/15/2019
WPW remote ablation in
Sick sinus syndrome
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
HTN
Hyperlipidemia
Diverticulosis
Kidney stones
SERENE
GERD
h/o paralyzed hemidiaphragm
CKD
Gerd w/ Ferrell esophagus
Echo 09/03/2023: EF 53%, mild concentric LVH. Mild to moderate MR. Well-seated #29 mm Palmer Jennifer TAVR with peak/mean gradients of 19/11 mmHg, respectively. Mild TR, PAP 37 mmHg. Mildly dilated ascending ao 4.0 cm.
Echo 06/23/2022:�EF 55 to 60%, trace MR, severe with mild AR, peak/mean gradients 62/37 mmHg
Echo 08/01/2022: Preserved ejection fraction normal regional wall motion, 29 mm Palmer TAVR is well seated, stable gradients peak/mean 21/13 mmhg.� No aortic�regurgitation is seen.
Lexiscan nuclear stress test 09/01/2023: Fixed basal and mid inferolateral defect consistent with soft tissue attenuation. Mild global hypokinesis, EF 48%.
Cardiac catheterization 07/03/2022:LM 30 to 40% distal stenosis with negative IFR at 0.94. LAD 20-30 distal stenosis. Ramus 30% ostial. LCX 50-60% mid with IFR negative at 0.95. RCA 50 to 60% ostial with IFR negative at 0.97
Plan:
-Presented 02/14/2024 dizziness/lightheadedness, palpitations/tachycardia, chest tightness. Interrogation of pacemaker showed 8 minutes 22 seconds of VT that correlated with patient's symptoms.
-Known history of symptomatic PVCs with high PVC burden greater than 300 an hour
-cath 02/15 with mod CAD, stable without significant progression compared to prior
-tolerating tikosyn. awaiting EKG following 5th dose this AM. if stable, ok for DC
-review of tele overnight SR with occasional PVCs however overall burden appears significantly decreased. no VT noted
-plan to hold off on BB/CCB at present. He has history of lightheadedness with Toprol and ineffective response with diltiazem as well as history of amiodarone toxicity
-continue eliquis
-continue statin
-will arrange OP cardiac follow up
-d/w nursing
HPI 02/15/2024:
Patient is an 83 -year-old male with past medical history significant for moderate nonobstructive coronary artery disease on cardiac catheterization in June 2022, symptomatic aortic stenosis status post transfemoral TAVR on 07/31/2022, paroxysmal
atrial fibrillation/flutter status post PVI ablations in October 2019, SSS s/p dual chamber Medtronic PPM, hypertension, hyperlipidemia and paralyzed hemidiaphragm. Patient was recently seen in cardiology office in January 2024 and noted to have
ongoing symptomatic PVCs with poor intolerance to metoprolol, ineffective response with Cardizem and amiodarone toxicity. Plan was for eventual elective admission for [facility]. He has a longstanding history of intermittent dizziness/lightheadedness
felt to be from symptomatic PVCs. He felt his usual lightheaded and dizziness on a.m. of 02/14/2024. However in the afternoon he developed worsening of symptoms with intermittent tachycardia as well as chest tightness which lasted approximately 8-9
minutes prompting him to come to emergency room on 02/15/2024. Symptoms stopped abruptly in route to hospital. Interrogation of pacemaker showed approximately 8-1/2 minutes of ventricular tachycardia which correlated with patient's symptoms.
Patient denies having chest pain on a daily basis. EKG showed AV paced rhythm. Troponin x 2 negative. Electrolytes unremarkable.
At time of this evaluation patient feeling well. Continues to have some intermittent dizziness/lightheadedness. He denies further episodes of chest pain or shortness of breath.
Progress Note - Delinquent Notice Machine Operator
Subjective
Date of Service: February 17, 2024
No issues overnight. Reports some muscular right-sided chest twinges, resolved
Objective
Labs:
02/17/24 02:49
02/17/24 02:49
Labs
Hgb 12.2 g/dL (13.0-18.0) L 02/17/24 02:49
Hct 35.1 % (39.0-52.0) L 02/17/24 02:49
Plt Count 131 10^3/uL (130-400) 02/17/24 02:49
Sodium 139 mmol/L (135-145) 02/17/24 02:49
Potassium 4.5 mmol/L (3.5-5.1) 02/17/24 02:49
BUN 23 mg/dl (9-20) H 02/17/24 02:49
Creatinine 1.0 mg/dL (0.7-1.3) 02/17/24 02:49
Glucose 133 mg/dl (70-99) H 02/17/24 02:49
Troponins
02/14/24 02/14/24 02/14/24
16:36 17:09 21:18
Troponin I Cancelled < 0.012 < 0.012
02/15/24
00:29
Troponin I < 0.012
Vital Signs and I&O:
Vital Signs
Temp Pulse Resp BP Pulse Ox
97.7 F 70 20 128/79 98
02/17/24 08:15 02/17/24 08:17 02/17/24 08:15 02/17/24 08:17 02/17/24 08:17
Vital Signs
Temp Pulse Resp BP Pulse Ox
97.7 F 70 20 128/79 98
02/17/24 08:15 02/17/24 08:17 02/17/24 08:15 02/17/24 08:17 02/17/24 08:17
Intake & Output
02/15/24 02/16/24 02/17/24 02/18/24
07:59 07:59 07:59 07:59
Intake Total 240 / 240 200 / 200
Output Total 750 / 750
Balance -750 / -750 240 / 240 200 / 200
Physical Exam
Physical Exam
GEN: No distress, awake, alert, oriented x3
HEENT: supple, anicteric, mmm, eomi
LUNGS: CTA B/L, no wheezes/rales
CV: Reg, S1/S2, 1/6 syst LSB
ABD: soft, BS+, NT/ND
EXT: No cyanosis, clubbing, edema
NEURO: Gross non-focal
SKIN: Warm, pink, dry. No rash
--- NOTE | 2024-02-17 10:41 | PTCARENOTE ---
Patient offers no complaints, given 5th dose of tikosyn, hopeful to be discharged home today.
[2024-02-17 11:10] VITALS: BP 136/76
[2024-02-17 11:26] VITALS: BP 139/85
[2024-02-17 11:50] VITALS: BP 136/76; BP 139/85; PULSE 70; O2SAT 99
[2024-02-17] MEDS: LIPITOR 80 MG PO (12:12)
[2024-02-17] MEDS: ZETIA 10 MG PO (12:13)
--- NOTE | 2024-02-17 14:20 | W.DCSUMMARY ---
Discharge Summary
Discharge Data
Date of Admission: 02/14/24
Date of Discharge: 02/17/24
-
Pending Results: No
Hospital Course
Principal Diagnosis:
Ventricular Tachycardia, nonsustained
Chronic Diagnoses:�
Paroxysmal atrial fibrillation/ atrial tachycardia status post pulmonary vein isolation 11/02/19 and 12/15/19
Severe Aortic Stenosis status post TAVR
Peripheral artery disease
Coronary artery disease
Benign Hypertension
Hypothyroidism, on levothyroxine
Gastroesophageal reflux disease
Consultations:�
Cardiology
Procedures:�
Cardiac catheterization 02/16/2024: noted moderate coronary artery disease, normal LVEDP.
Clinical course:�
This is a 83-year-old male, with past medical history as stated above, who presented with lightheadedness and palpitation.
His pacemaker was interrogated in the ED which showed ventricular tachycardia.
Problem 1:
Ventricular Tachycardia, nonsustained.
He was initiated with dofetilide antiarrhythmic drug loading this admission
He underwent cardiac cath on 02/15: which noted moderate coronary artery disease and normal LVEDP.
Per cardiology, his prior to admission Cardizem (AV node lurdes) can be discontinued going forward.
He can follow-up with cardiology outpatient.
As for the rest of his medical problems, they were stable during his hospital stay.
Discharge Plan
-
Patient Disposition: Home (Routine Discharge)
Discharge Diagnosis/Procedures: cardiac catheterization, ventricular tachycardia/PVCs, tikosyn loading
Condition: Good
Diet: As tolerated and Low Sodium
Driving Restrictions: No driving for 24 hours
Stand Alone Forms: DC Instructions- Cath/EP Lab
Referrals:
Randolph Adams MD [Family Provider] -
Royce Montes De Oca MD [Active] - 03/29/24 10:40 am (Cardiology followup appointment)
Additional Discharge Medication Instructions: STOP diltiazem.
Prescriptions:
Continued
Centrum Silver 1 EACH tablet
1 ea PO DAILY
Eliquis 5 MG tablet
5 mg PO BID Qty: 90 3RF
levothyroxine [Synthroid] 50 mcg Tablet
50 mcg PO DAILY
cholecalciferol (vitamin D3) [Vitamin D3] 25 mcg (1,000 unit) Capsule
25 mcg PO DAILY
acetaminophen 500 mg Tablet
1,000 mg PO Q6HPRN PRN (Reason: mild pain)
ferrous sulfate 325 mg (65 mg iron) Tablet
325 mg PO DAILY Qty: 0
atorvastatin 80 mg Tablet
80 mg PO NOON
ascorbic acid (vitamin C) [Vitamin C] 1,000 mg Tablet
1,000 mg PO DAILY
pantoprazole 40 mg Tablet,Delayed Release (Dr/Ec)
40 mg PO BID
ezetimibe 10 mg Tablet
10 mg PO NOON
coenzyme Q10 [CoQ-10] 100 mg Capsule
100 mg PO DAILY
potassium citrate 99 mg Capsule
99 mg PO BID
Discontinued
diltiazem HCl 120 mg capsule,ext.rel 24h degradable
120 mg PO BID
Discharge Orders:
Discharge Patient (As Directed); Ordered 02/17/24
Ordered By: Nelly Lundy
Care Plan Goals
Care Plan Goals:
Problem: Readiness for enhanced knowledge related to diagnosis and treatment plan
Goal: Understand your diagnosis and treatment plan needs, including medications if applicable.
Instructions: Know your diagnosis, underlying causes and treatment plan options, including medications if applicable. Consult with your health care team to learn about your diagnosis and treatment plan, including medications if applicable.
Discharge Date and Time
Print Language: MALTESE
[2024-02-17] MEDS: FLUAD (65 yr+) 2024-2025 FORMULA 0.5 ML IM (14:54)
--- NOTE | 2024-02-17 15:17 | CM ---
CM following for DC planning needs.
Pt. for DC today. Pt. has received x3 d Rx for Tikosyn.
Met w/ patient at bedside. He does not have RX plan thru insurance; [facility]
He is agreeable to pay [facility] thru [facility] for the first Tikosyn fill. Printed out coupon for Saritha thru [facility] for $25 and provided to pt.
He will follow up with MD office to get medications [facility].
Plan is for home, no needs.
[2024-02-17 15:35] VITALS: BP 130/87
--- NOTE | 2024-02-17 16:16 | PTCARENOTE ---
Reviewed discharge instructions with the patient and he states his understanding. Patient given three day supply of tikosyn to take home. Patient discharged home with his son.
== END 2024-02-17 16:38 | disposition home or self-care (01) | DRG 287 ==
LOC: IVU 17:54
PROVIDERS: Internal Medicine Interventional Cardiology; Registered Nurse; ADMITTING PHYSICIAN Hospitalist; ATTENDING PHYSICIAN Internal Medicine; EMERGENCY PHYSICIAN Emergency Medicine; FAMILY PHYSICIAN Internal Medicine Geriatric Medicine; OTHER PHYSICIAN Internal Medicine Cardiovascular Disease
PROC: 4A023N7 Measurement of Cardiac Sampling and Pressure, Left Heart, Percutaneous Approach (ICD-10-PCS; 2024-02-16)
PROC: 4A033BC Measurement of Arterial Pressure, Coronary, Percutaneous Approach (ICD-10-PCS; 2024-02-16)
PROC: B211YZZ Fluoroscopy of Multiple Coronary Arteries using Other Contrast (ICD-10-PCS; 2024-02-16)
PROC: 3E02340 Introduction of Influenza Vaccine into Muscle, Percutaneous Approach (ICD-10-PCS; 2024-02-17)
DX: I47.20 Ventricular tachycardia, unspecified (principal); I13.0 Hypertensive heart and chronic kidney disease with heart failure and stage 1 through stage 4 chronic kidney disease, or unspecified chronic kidney disease; I50.32 Chronic diastolic (congestive) heart failure; I47.19 Other supraventricular tachycardia; N18.32 Chronic kidney disease, stage 3b; I35.0 Nonrheumatic aortic (valve) stenosis; I48.0 Paroxysmal atrial fibrillation; I49.5 Sick sinus syndrome; I73.9 Peripheral vascular disease, unspecified; G47.33 Obstructive sleep apnea (adult) (pediatric); E03.9 Hypothyroidism, unspecified; D50.9 Iron deficiency anemia, unspecified; D69.6 Thrombocytopenia, unspecified; E78.00 Pure hypercholesterolemia, unspecified; G20.A1 Parkinson's disease without dyskinesia, without mention of fluctuations; I25.10 Atherosclerotic heart disease of native coronary artery without angina pectoris; K21.9 Gastro-esophageal reflux disease without esophagitis; K22.70 Barrett's esophagus without dysplasia; Z23 Encounter for immunization; I25.2 Old myocardial infarction; Z96.651 Presence of right artificial knee joint; Z96.641 Presence of right artificial hip joint; Z96.611 Presence of right artificial shoulder joint; Z95.2 Presence of prosthetic heart valve; Z88.8 Allergy status to other drugs, medicaments and biological substances; Z88.5 Allergy status to narcotic agent; Z87.891 Personal history of nicotine dependence; Z82.49 Family history of ischemic heart disease and other diseases of the circulatory system; Z79.890 Hormone replacement therapy; Z79.01 Long term (current) use of anticoagulants
CPT/HCPCS: 71045; 80048; 80053; 80061; 83036; 83735; 84484; 85025; 85027; 85347; 93005; 93288; 93458; 93799; 97116; 97162; 97530; 99285; C1769; C1887; C1894; Q9967

== ENCOUNTER 2024-03-18 15:27 | Emergency (ER) | payer MEDICARE, OTHER, SELFPAY ==
[2024-03-18 15:28] VITALS: BP 156/86
--- NOTE | 2024-03-18 16:00 | ED.GENMED ---
History of Present Illness
General
Chief Complaint: DVT/Possible Blood Clot
Source: patient
Exam Limitations: none
Time Seen by Provider: 03/18/24 16:00
Nursing documentation reviewed up to this point in time: agreed with
History of Present Illness
History of Present Illness:
83-year-old male with a past medical history of abdominal aortic aneurysm, A-fib on Eliquis, WPW, hypertension, hyperlipidemia presents emergency department today with pain in the mid right calf for the past 2 weeks as well as swelling in the right
calf that started this morning. Patient went to urgent care today where he was sent to the emergency department for further evaluation. Patient states that when this first started, he denies any inciting injury. Patient states that he would
notice some pain on and off at rest, he states that the pain would resolve with walking. Patient feels like the pain comes on if he sits for too long at a time. Then, when he woke up this morning, he noticed that same leg was swollen. Patient
denies any history of blood clots, denies any history of cancer, denies any recent surgeries. Patient denies any recent falls. Patient is able to ambulate without any difficulties.
Past History
Past History
ED Past Medical History: Arrthythmia (Atrial fib), HTN, Hypercholesterolemia, Valvular disease, Hypothyroidism, Other (Duodenal ulcer, WPW, barretts esophagus. PVC's, Kidney stones,) and Other ( glossopharyngeal neuralgia); Negative CAD
ED Past Surgical History: Cardiac (3 ablations, 3 cardioversions), Cholecystectomy, Orthopedic and Other (Noncontributory)
Social History
Tobacco: Former smoker (quit 40 years ago)
Alcohol: Occasional
Drug: None
Personal:
Living: with family
Employment: Employed
Family History
Family History: Other (Noncontributory)
Review of Systems
Review of Systems
All Other Systems: ROS reviewed and negative except as documented in HPI and ROS
Phy Exam
Physical Exam
Physical Exam:
General: Patient is well appearing and in no acute distress; non-toxic
Skin: Warm and dry, no rashes or lesions
Head: Normocephalic, atraumatic
Eyes: Sclera non-icteric. EOMs intact. PERRLA.
Cardiac: Regular rate and rhythm
Peripheral Vascular: Right sided pedal edema extending up to right mid tibia. 2+ dorsalis pedis and posterior tibial pulses bilaterally.
Pulm: Normal respiratory effort, no crackles
Musculoskeletal: Tenderness palpation of the right posterior calf, no bony tenderness to palpation.
Neuro: CN II-XII intact, no focal neurologic deficits.
Psychiatric: Appropriate mood and affect.
Course
Orders/Labs/Results
Orders:
Orders
03/18/24 15:30
US Legs, Right [US Periph Venous LOWER Ext RT] Urgent
Comment:
Reason For Exam: r/o DVT swelling
Vital Signs
Initial and Last Documented VS:
Initial Vital Signs
Temp Pulse Resp BP Pulse Ox
98.3 F 86 16 156/86 98
03/18/24 15:28 03/18/24 15:28 03/18/24 15:28 03/18/24 15:28 03/18/24 15:28
Last Documented Vital Signs
Temp Pulse Resp BP Pulse Ox
98.1 F 72 15 152/80 99
03/18/24 17:51 03/18/24 17:51 03/18/24 17:51 03/18/24 17:51 03/18/24 17:51
MDM/Problems Addressed
Differential Diagnosis Includes:
DVT, cellulitis, venous insufficiency, musculoskeletal sprain/strain
MDM/Problems Addressed:
83-year-old male takes Eliquis for atrial fibrillation, presents emergency department today with concerns of right calf pain. Patient started to have swelling in his calf this morning. Patient had ultrasound done today which revealed lower
extremity edema with a 5.2 x 0.6 x 2.9 cm collection in the posterior calf without evidence of surrounding inflammatory changes which likely represents a hematoma. Considering patient is on Eliquis, I think this likely represents a hematoma.
Discussed findings with patient, on exam, patient is not currently in atrial fibrillation. Patient did take his Eliquis dose this morning. I think he is safe to skip his Eliquis dose tonight, and resume Eliquis tomorrow, did encourage patient to
call his surgical garment fitter and discuss these findings. Encourage patient to elevate his leg at home, wrapped his leg in Venkata wrap, discussed follow-up with primary care provider. Patient stable for discharge.
*Radiology
Radiology exam reviewed: radiology read reviewed
*Pulse Oximetry
Patient hypoxic: no
*Critical Care Note
Total Time (30-74mins, 75-104mins- exclusive of procedures): Not Applicable
Data Reviewed
Review of Other/Old Records Reveals: Records (Reviewed discharge summary from 02/17/2024) and Discharge Summary
Source: patient and records
Prescriptions/Medications Considered But Not Given:
n/a
Further Testing Considered But Not Given:
n/a
Patient Management
Escalation/DeEscalation of care consider admission/obs:
Admit not indicated, patient stable for discharge
ED Attending Note
-
Portions of this chart may have been created with voice recognition software.� Occasional wrong word or��sound alike� substitutions may have occurred due to the inherent limitations of voice recognition software.
Discharge Plan
Departure
Patient Disposition: Home (Routine Discharge)
Date of Disposition: 03/18/24
Time of Disposition: 17:37
Patient with high blood pressure during this ER visit?: Yes
Condition: Good
Discharge Problem:
Hematoma of right lower leg
Instructions: BLOOD PRESSURE, Hematoma
Prescriptions:
No Action
Centrum Silver 1 EACH tablet
1 ea PO DAILY
Eliquis 5 MG tablet
5 mg PO BID Qty: 90 3RF
levothyroxine [Synthroid] 50 mcg Tablet
50 mcg PO DAILY
cholecalciferol (vitamin D3) [Vitamin D3] 25 mcg (1,000 unit) Capsule
25 mcg PO DAILY
acetaminophen 500 mg Tablet
1,000 mg PO Q6HPRN PRN (Reason: mild pain)
ferrous sulfate 325 mg (65 mg iron) Tablet
325 mg PO DAILY Qty: 0
atorvastatin 80 mg Tablet
80 mg PO NOON
ascorbic acid (vitamin C) [Vitamin C] 1,000 mg Tablet
1,000 mg PO DAILY
pantoprazole 40 mg Tablet,Delayed Release (Dr/Ec)
40 mg PO BID
ezetimibe 10 mg Tablet
10 mg PO NOON
coenzyme Q10 [CoQ-10] 100 mg Capsule
100 mg PO DAILY
potassium citrate 99 mg Capsule
99 mg PO BID
dofetilide [Tikosyn] 500 mcg capsule
500 mcg PO Q12H Qty: 60 11RF
Referrals:
Randolph Adams MD [Family Provider] -
Activity Restrictions/Additional Instructions:
Please return to emergency department should you experience numbness or tingling in her right lower extremity, pallor, loss of sensation, inability to ambulate, and acute worsening of your pain, or any other signs or symptoms concerning to you.
Please call your surgical garment fitter on Thursday to discuss the results of your ultrasound.
Please follow-up with your primary care provider.
Interventions
Interventions:
*Risk Screen - Suicide Last Done: 03/18/24 15:28
*General Assessment Last Done: 03/18/24 15:28
*Neglect/Abuse Screening Last Done: 03/18/24 15:28
ED- Fall Risk Assessment Last Done: 03/18/24 17:15
*ED COVID-19 Vaccine History Last Done: 03/18/24 17:09
*Nursing Disposition Last Done: 03/18/24 17:51
ED- Cardiac Assessment Last Done: 03/18/24 17:15
ED- Pulmonary Assessment Last Done: 03/18/24 17:15
ED-Peripheral Vascular Assessment Last Done: 03/18/24 17:53
ED-Skin Assessment Last Done: 03/18/24 17:51
Discharge Date and Time
Discharge Date/Time: 03/18/24 17:53
Print Language: VIET[place]ESE
[2024-03-18 16:18] VITALS: BP 158/85
[2024-03-18 17:09] VITALS: BMI 26.1
[2024-03-18 17:51] VITALS: BP 152/80
== END 2024-03-18 17:53 | disposition home or self-care (01) ==
LOC: EMR 15:27
PROVIDERS: EMERGENCY PHYSICIAN Emergency Medicine; FAMILY PHYSICIAN Internal Medicine Geriatric Medicine
DX: S80.11XA Contusion of right lower leg, initial encounter (principal); X58.XXXA Exposure to other specified factors, initial encounter; R60.0 Localized edema; E03.9 Hypothyroidism, unspecified; E78.00 Pure hypercholesterolemia, unspecified; I10 Essential (primary) hypertension; I48.91 Unspecified atrial fibrillation; Z79.01 Long term (current) use of anticoagulants; Z86.79 Personal history of other diseases of the circulatory system; Z87.19 Personal history of other diseases of the digestive system; Z87.442 Personal history of urinary calculi; Z87.891 Personal history of nicotine dependence; Z90.49 Acquired absence of other specified parts of digestive tract
CPT/HCPCS: 99284; 93971

== ENCOUNTER → 2024-03-28 11:15 | Outpatient (REF) | payer MEDICARE, OTHER, SELFPAY ==
[2024-03-28 15:49] LABS: ALT (SGPT) 17 U/L (0-50); AST (SGOT) 32 U/L (17-59); Albumin 3.8 g/dl (3.5-5.0); Alkaline Phosphatase 134 U/L (38-126); Blood Urea Nitrogen 20 mg/dl (9-20); Calcium 8.8 mg/dl (8.4-10.2); Carbon Dioxide 24 mmol/L (22-30); Chloride 106 mmol/L (98-107); Direct Bilirubin 0.3 mg/dl (0.0-0.4); Glucose 103 mg/dl (70-99); Potassium 4.1 mmol/L (3.5-5.1); Sodium 142 mmol/L (135-145); Total Bilirubin 1.7 mg/dl (0.2-1.3); Total Protein 6.5 g/dl (6.3-8.2); eGFR > 60.00
[2024-03-29 09:08] LABS: Intact PTH 89.2 pg/ml (13.6-85.8)
== END ==
LOC: HWLAB 11:15
PROVIDERS: ATTENDING PHYSICIAN Internal Medicine Endocrinology, Diabetes & Metabolism; FAMILY PHYSICIAN Internal Medicine Geriatric Medicine; REFERRING PHYSICIAN Internal Medicine
DX: N25.81 Secondary hyperparathyroidism of renal origin (principal); E06.3 Autoimmune thyroiditis; R74.8 Abnormal levels of other serum enzymes
CPT/HCPCS: 36415; 80053; 82248; 83970; 84443

== ENCOUNTER → 2024-04-22 14:30 | Outpatient (REF) | payer MEDICARE, OTHER, SELFPAY | LOC: HWRAD 14:30 | PROVIDERS: ATTENDING PHYSICIAN Internal Medicine Endocrinology, Diabetes & Metabolism; FAMILY PHYSICIAN Internal Medicine Geriatric Medicine | DX: M81.0 Age-related osteoporosis without current pathological fracture (principal) | CPT/HCPCS: 77080 ==

== ENCOUNTER 2024-06-04 17:29 | Emergency (ER) | payer MEDICARE, OTHER, SELFPAY ==
[2024-06-04 17:33] VITALS: BP 149/75
[2024-06-04 18:06] LABS: Urine Albumin 1+ (Neg - Trace); Urine Bilirubin Negative (Negative); Urine Color Amber; Urine Glucose Negative (Negative); Urine Ketone Trace (Negative); Urine Leukocyte 1+ (Negative); Urine Nitrite Positive (Negative); Urine Occult Blood 4+ (Negative); Urine Urobilinogen 1+ (Neg - 1+)
[2024-06-04 18:18] LABS: Urine Squamous Cell 0-2 /LPF (Few)
[2024-06-04 18:19] LABS: Urine Character Very Cloudy (Clear); Urine Red Blood Cell >100 /HPF (0-2)
--- NOTE | 2024-06-04 19:39 | ED.GENMED ---
History of Present Illness
<Hanh Hunter AUTOMATED MANUFACTURING INSTRUCTOR - Last Filed: 06/05/24 15:20>
General
Chief Complaint: Male Genito-Urinary Symptoms
Source: patient
Exam Limitations: none
Time Seen by Provider: 06/04/24 19:09
Nursing documentation reviewed up to this point in time: agreed with
History of Present Illness
History of Present Illness:
83 yo male on Eliquis for Afib, hx of AAA, HTN, HLD, Pacemaker, aortic stenosis, WPW, PUD, Ferrell's Esophagus, hypothyroid present for hematuria since 2 a.m. Triage note states had some L flank pain but pt denies this. Denies fever/chills. Denies
burning, urgency frequency
Has seen Dr. Delcid in the past for remote hx of kidney stones
Past History
<Hanh Hunter, AUTOMATED MANUFACTURING INSTRUCTOR - Last Filed: 06/05/24 15:20>
Past History
ED Past Medical History: Arrthythmia (Atrial fib), HTN, Hypercholesterolemia, Valvular disease, Hypothyroidism, Other (Duodenal ulcer, WPW, Ferrell's esophagus. PVC's, Kidney stones,) and Other ( glossopharyngeal neuralgia); Negative CAD
ED Past Surgical History: Cardiac (3 ablations, 3 cardioversions), Cholecystectomy, Orthopedic and Other (Noncontributory)
Social History
Tobacco: Former smoker (quit 40 years ago)
Alcohol: Occasional
Drug: None
Personal:
Living: with family
Employment: Employed
Family History
Family History: Other (Noncontributory)
Review of Systems
<Hanh Hunter AUTOMATED MANUFACTURING INSTRUCTOR - Last Filed: 06/05/24 15:20>
Review of Systems
Allergies reviewed?: Yes
All Other Systems: ROS reviewed and negative except as documented in HPI and ROS
Constitutional: Denies fever or chills
Respiratory: Denies trouble breathing
Cardiac: Denies chest pain
ABD/GI: Denies abdominal pain, nausea or vomiting
: Reports bleeding (Bloody urine, no clots); Denies dysuria, frequency, flank pain, difficulty voiding or urgency
Musculoskeletal: Reports no symptoms
Skin: Reports no symptoms
Neurological: Reports no symptoms
Phy Exam
<Hanh Hunter, AUTOMATED MANUFACTURING INSTRUCTOR - Last Filed: 06/05/24 15:20>
Physical Exam
Physical Exam:
GENERAL: No acute distress. A&Ox3.
CONSTITUTIONAL: Afebrile.
EYES: clear, conjunctivae normal
ENMT: moist mucus membranes
RESPIRATORY: Regular respirations, nonlabored, lungs clear.
CARDIOVASCULAR: Regular rate and rhythm, no murmurs, no rubs.
GI: Soft, nontender, normal BS. No flank tenderness to percussion
MUSCULOSKELETAL: Moves with ease. Well perfused.
SKIN: Warm, dry, pink
PSYCH: Normal mood and affect. Well kept, interactive and appropriate
NEUROLOGIC: Awake, alert and oriented. No focal neurological deficits
Course
<Hanh Hunter, AUTOMATED MANUFACTURING INSTRUCTOR - Last Filed: 06/05/24 15:20>
Orders/Labs/Results
Orders:
Orders
06/04/24 17:43
Urinalysis Reflex To Culture Urgent
Date Specimen was Collected: 06/04/24
Time Specimen was Collected: 17:42
Urine Microscopic Reflex Cult Urgent
Urine Culture Urgent
DYLAN Source: U
Specimen Description:
Date Specimen was Collected: 06/04/24
Time Specimen was Collected: 17:42
06/04/24 18:53
CT Abd/pel Without Iv Or Oral Urgent
Comment:
Reason For Exam: L flank pain hx stones, hematuria
06/04/24 21:50
Complete Blood Count/With Diff Urgent
Comprehensive Metabolic Panel Urgent
06/04/24 22:59
Tamsulosin [Flomax] 0.4 mg PO NOW STA
Abnormal Lab Results
06/04/24 06/04/24
17:43 21:50
RBC 4.29 L 10^6/uL
(4.70-6.10)
Hct 38.7 L %
(39.0-52.0)
Plt Count 73 L 10^3/uL
(130-400)
Absolute Lymphs (auto) 1.0 L 10^3/uL
(1.2-3.4)
Lymphocytes % 18.8 L %
(20.5-51.1)
Monocytes % 10.5 H %
(1.7-9.3)
Glucose 100 H mg/dl
(70-99)
Total Bilirubin 1.9 H mg/dl
(0.2-1.3)
Urine Ketones Trace A
(Negative)
Ur Occult Blood Reflex 4+ A
(Negative)
Urine Nitrite (Reflex) Positive A
(Negative)
Leukocyte Esterase Rfl 1+ A
(Negative)
Urine RBC >100 A /HPF
(0-2)
Urine Albumin (Reflex) 1+ A
(Neg - Trace)
06/04/24 21:50
06/04/24 21:50
Vital Signs
Initial and Last Documented VS:
Initial Vital Signs
Temp Pulse Resp BP Pulse Ox
98.1 F 68 18 149/75 97
06/04/24 17:33 06/04/24 17:33 06/04/24 17:33 06/04/24 17:33 06/04/24 17:33
Last Documented Vital Signs
Temp Pulse Resp BP Pulse Ox
97.4 F 70 18 157/91 98
06/04/24 21:03 06/04/24 21:03 06/04/24 21:03 06/04/24 21:03 06/04/24 21:03
<Tiffanie De Jesus MD - Last Filed: 06/04/24 21:25>
Orders/Labs/Results
Orders:
Orders
06/04/24 17:43
Urinalysis Reflex To Culture Urgent
Date Specimen was Collected: 06/04/24
Time Specimen was Collected: 17:42
Urine Microscopic Reflex Cult Urgent
Urine Culture Urgent
DYLAN Source: U
Specimen Description:
Date Specimen was Collected: 06/04/24
Time Specimen was Collected: 17:42
06/04/24 18:53
CT Abd/pel Without Iv Or Oral Urgent
Comment:
Reason For Exam: L flank pain hx stones, hematuria
06/04/24 21:50
Complete Blood Count/With Diff Urgent
Comprehensive Metabolic Panel Urgent
06/04/24 22:59
Tamsulosin [Flomax] 0.4 mg PO NOW STA
Abnormal Lab Results
06/04/24 06/04/24
17:43 21:50
RBC 4.29 L 10^6/uL
(4.70-6.10)
Hct 38.7 L %
(39.0-52.0)
Plt Count 73 L 10^3/uL
(130-400)
Absolute Lymphs (auto) 1.0 L 10^3/uL
(1.2-3.4)
Lymphocytes % 18.8 L %
(20.5-51.1)
Monocytes % 10.5 H %
(1.7-9.3)
Glucose 100 H mg/dl
(70-99)
Total Bilirubin 1.9 H mg/dl
(0.2-1.3)
Urine Ketones Trace A
(Negative)
Ur Occult Blood Reflex 4+ A
(Negative)
Urine Nitrite (Reflex) Positive A
(Negative)
Leukocyte Esterase Rfl 1+ A
(Negative)
Urine RBC >100 A /HPF
(0-2)
Urine Albumin (Reflex) 1+ A
(Neg - Trace)
06/04/24 21:50
06/04/24 21:50
Vital Signs
Initial and Last Documented VS:
Initial Vital Signs
Temp Pulse Resp BP Pulse Ox
98.1 F 68 18 149/75 97
06/04/24 17:33 06/04/24 17:33 06/04/24 17:33 06/04/24 17:33 06/04/24 17:33
Last Documented Vital Signs
Temp Pulse Resp BP Pulse Ox
97.4 F 70 18 157/91 98
06/04/24 21:03 06/04/24 21:03 06/04/24 21:03 06/04/24 21:03 06/04/24 21:03
<Hanh Hunter AUTOMATED MANUFACTURING INSTRUCTOR - Last Filed: 06/05/24 15:20>
MDM/Problems Addressed
Differential Diagnosis Includes:
kidney stone,
MDM/Problems Addressed:
83 yo male on Eliquis for Afib, hx of AAA, HTN, HLD, Pacemaker, aortic stenosis, WPW, PUD, Ferrell's Esophagus, hypothyroid present for hematuria since 2 a.m. Triage note states had some L flank pain but pt denies this. Denies fever/chills. Denies
burning, urgency frequency
Has seen Dr. Delcid in the past for remote hx of kidney stones
Afebrile, NAD
CBC,CMP unremarkable.
U/A w >100 / HPF RBCs. Unable to read WBC's obliterated by RBCs. Afebrile, no pain
CT abd/pelvis: Radiology report: 6 mm x 6 mm x 5 mm calculus is noted in the upper portion of the left ureter. Mild proximal hydronephrosis and hydroureter are seen. Incidental finding of slightly larger AAA needs outpt f/u at 4.7 cm
Copy of report sent to Urology Dr. Gunderson. He requests pt stop Eliquis, call office Thursday a.m. for same or next day appointment.
Pt informed of slight increase in size of his AAA, he states he will speak with Dr. Palacios about it.
<Hanh Hunter, AUTOMATED MANUFACTURING INSTRUCTOR - Last Filed: 06/05/24 15:20>
*Critical Care Note
Total Time (30-74mins, 75-104mins- exclusive of procedures): Not Applicable
ED Attending Note
<Hanh Hunter, AUTOMATED MANUFACTURING INSTRUCTOR - Last Filed: 06/05/24 15:20>
-
Portions of this chart may have been created with voice recognition software.� Occasional wrong word or��sound alike� substitutions may have occurred due to the inherent limitations of voice recognition software.
<Tiffanie De Jesus MD - Last Filed: 06/04/24 21:25>
ED Attending Note
Patient seen and examined by attending physician: Yes
I performed the substantive portion of visit, reviewed & personally made and approve the management plan that is documented in note by myself or RAFIA.: Yes
ED Attending Note:
83-year-old male presents emergency department hematuria. Currently on Eliquis. This is associated with pain in the left flank without radiation. Patient is still urinating without difficulty. He denies dysuria, frequency, urgency, fever,
chills, nausea, vomiting.On exam, patient well-appearing, awake alert, no distress. CT shows 6 mm stone on the left side. Urine equivocal. We will discuss with urology regarding management, whether to discontinue the Eliquis, antibiotics, etc.
Discharge Plan
Departure
Patient Disposition: Home (Routine Discharge)
Date of Disposition: 06/04/24
Time of Disposition: 22:58
Patient with high blood pressure during this ER visit?: No
Condition: Good
Discharge Problem:
Left ureteral stone
Instructions: Kidney stones in adults
Prescriptions:
New
tamsulosin [Flomax] 0.4 mg capsule
0.4 mg PO DAILY Qty: 5 0RF
No Action
Centrum Silver 1 EACH tablet
1 ea PO DAILY
Eliquis 5 MG tablet
5 mg PO BID Qty: 90 3RF
levothyroxine [Synthroid] 50 mcg Tablet
50 mcg PO DAILY
cholecalciferol (vitamin D3) [Vitamin D3] 25 mcg (1,000 unit) Capsule
25 mcg PO DAILY
acetaminophen 500 mg Tablet
1,000 mg PO Q6HPRN PRN (Reason: mild pain)
ferrous sulfate 325 mg (65 mg iron) Tablet
325 mg PO DAILY Qty: 0
atorvastatin 80 mg Tablet
80 mg PO NOON
ascorbic acid (vitamin C) [Vitamin C] 1,000 mg Tablet
1,000 mg PO DAILY
pantoprazole 40 mg Tablet,Delayed Release (Dr/Ec)
40 mg PO BID
ezetimibe 10 mg Tablet
10 mg PO NOON
coenzyme Q10 [CoQ-10] 100 mg Capsule
100 mg PO DAILY
potassium citrate 99 mg Capsule
99 mg PO BID
dofetilide [Tikosyn] 500 mcg capsule
500 mcg PO Q12H Qty: 60 11RF
Referrals:
Randolph Adams MD [Family Provider] -
Raoul Gunderson Jr., MD [Active] - Call in 1-3 days for appt
Activity Restrictions/Additional Instructions:
As we discussed, stop your Eliquis until further instructed by the urologist
Call the urology office first thing Thursday morning, inform them of this visit and make an appointment for same or next day
Return here immediately for fever, vomiting, pain, chills or feeling sicker in any way.
I sent a prescription to your pharmacy for Flomax, started tomorrow as you were given a dose here today.
Interventions
Interventions:
*Risk Screen - Suicide Last Done: 06/04/24 17:33
*General Assessment Last Done: 06/04/24 17:33
*Neglect/Abuse Screening Last Done: 06/04/24 17:33
*Nursing Disposition Last Done: 06/04/24 23:07
ED-Male Genitourinary Assessment Last Done: 06/04/24 21:04
Discharge Date and Time
Discharge Date/Time: 06/04/24 23:07
Print Language: BENGALI
[2024-06-04 21:03] VITALS: BP 157/91; BMI 26.1
[2024-06-04 22:10] LABS: % Basophils 0.8 % (0-2); % Eosinophils 4.7 % (0-6); % Immature Granulocytes 0.2 % (0-0.5); % Lymphocytes 18.8 % (20.5-51.1); % Monocytes 10.5 % (1.7-9.3); Absolute Eosinophils 0.2 10^3/uL (0-0.7); Absolute Monocytes 0.5 10^3/uL (0.1-0.6); Absolute Neutrophils 3.3 10^3/uL (1.4-6.5); Hematocrit 38.7 % (39.0-52.0); Hemoglobin 13.3 g/dL (13.0-18.0); Mean Corp Hgb Conc. 34.4 g/dL (33.0-37.0); Mean Corpuscular Volume 90.2 fL (80.0-94.0); Nucleated Red Blood Cells % 0 % (-); Red Blood Cell Count 4.29 10^6/uL (4.70-6.10); Red Cell Dist. Width 14.5 % (11.5-14.5); White Blood Cell Count 5.1 10^3/uL (4.8-10.8)
[2024-06-04 22:20] LABS: ALT (SGPT) 14 U/L (0-50); AST (SGOT) 33 U/L (17-59); Albumin 3.9 g/dl (3.5-5.0); Alkaline Phosphatase 119 U/L (38-126); Blood Urea Nitrogen 20 mg/dl (9-20); Calcium 8.8 mg/dl (8.4-10.2); Carbon Dioxide 26 mmol/L (22-30); Chloride 103 mmol/L (98-107); Estimated Creatinine Clearance 59 ml/min; Glucose 100 mg/dl (70-99); Potassium 4.4 mmol/L (3.5-5.1); Sodium 137 mmol/L (135-145); Total Bilirubin 1.9 mg/dl (0.2-1.3); Total Protein 6.5 g/dl (6.3-8.2); eGFR > 60.00
[2024-06-04 22:34] LABS: Mean Platelet Volume 9.5 fL (7.4-10.4); Platelet Count 73 10^3/uL (130-400)
[2024-06-04] MEDS: FLOMAX 0.4 MG PO (23:01)
== END 2024-06-04 23:07 | disposition home or self-care (01) ==
LOC: EMR 17:29
PROVIDERS: Registered Nurse; EMERGENCY PHYSICIAN Emergency Medicine; FAMILY PHYSICIAN Internal Medicine Geriatric Medicine
DX: R31.9 Hematuria, unspecified (principal); N13.2 Hydronephrosis with renal and ureteral calculous obstruction; I71.43 Infrarenal abdominal aortic aneurysm, without rupture; I10 Essential (primary) hypertension; E03.9 Hypothyroidism, unspecified; E78.00 Pure hypercholesterolemia, unspecified; I35.0 Nonrheumatic aortic (valve) stenosis; I45.6 Pre-excitation syndrome; K22.70 Barrett's esophagus without dysplasia; I48.91 Unspecified atrial fibrillation; I48.92 Unspecified atrial flutter; G47.30 Sleep apnea, unspecified; M19.90 Unspecified osteoarthritis, unspecified site; G52.1 Disorders of glossopharyngeal nerve; Z95.0 Presence of cardiac pacemaker; Z96.651 Presence of right artificial knee joint; Z79.01 Long term (current) use of anticoagulants; Z87.11 Personal history of peptic ulcer disease; Z85.828 Personal history of other malignant neoplasm of skin; Z87.891 Personal history of nicotine dependence; Z87.442 Personal history of urinary calculi; Z90.49 Acquired absence of other specified parts of digestive tract; Z88.6 Allergy status to analgesic agent; Z88.8 Allergy status to other drugs, medicaments and biological substances
CPT/HCPCS: 99284; 74176; 80053; 81003; 81015; 85025; 87086

== ENCOUNTER → 2024-06-09 13:49 | Outpatient (REF) | payer MEDICARE, OTHER, SELFPAY | LOC: RAD 13:49 | PROVIDERS: ATTENDING PHYSICIAN Internal Medicine Cardiovascular Disease; FAMILY PHYSICIAN Internal Medicine Geriatric Medicine | DX: G45.3 Amaurosis fugax (principal) | CPT/HCPCS: 93880 ==

== ENCOUNTER → 2024-06-21 14:25 | Outpatient (REF) | payer MEDICARE, OTHER, SELFPAY | LOC: RAD 14:25 | PROVIDERS: ATTENDING PHYSICIAN Specialist; FAMILY PHYSICIAN Internal Medicine Geriatric Medicine | DX: Z87.442 Personal history of urinary calculi (principal) | CPT/HCPCS: 76770 ==

== ENCOUNTER → 2024-08-09 07:10 | Outpatient (REF) | payer MEDICARE, OTHER, SELFPAY ==
[2024-08-09 09:26] LABS: Urine Albumin Negative (Neg - Trace); Urine Bilirubin Negative (Negative); Urine Character Clear (Clear); Urine Color Yellow; Urine Glucose Negative (Negative); Urine Ketone Negative (Negative); Urine Leukocyte Negative (Negative); Urine Nitrite Negative (Negative); Urine Occult Blood 4+ (Negative); Urine Urobilinogen 1+ (Neg - 1+); Urine pH 6.5 (5.0-9.0)
[2024-08-09 09:36] LABS: ALT (SGPT) 19 U/L (0-50); AST (SGOT) 33 U/L (17-59); Albumin 4.5 g/dl (3.5-5.0); Alkaline Phosphatase 159 U/L (38-126); Blood Urea Nitrogen 21 mg/dl (9-20); Calcium 9.3 mg/dl (8.4-10.2); Carbon Dioxide 27 mmol/L (22-30); Chloride 105 mmol/L (98-107); Glucose 88 mg/dl (70-99); HDL Cholesterol 59 mg/dl; LDL Cholesterol, Calculated 28 mg/dl; Potassium 4.3 mmol/L (3.5-5.1); Sodium 141 mmol/L (135-145); Total Cholesterol 99 mg/dl (50-199); Total Protein 7.4 g/dl (6.3-8.2); Triglyceride 64 mg/dl (10-149); Very Low Density Lipoprotein 12 mg/dl (0-30); eGFR > 60.00
[2024-08-09 09:38] LABS: % Basophils 0.6 % (0-2); % Immature Granulocytes 0.2 % (0-0.5); % Lymphocytes 25.4 % (20.5-51.1); % Monocytes 10.1 % (1.7-9.3); % Neutrophils 57.7 % (42.2-75.2); Absolute Eosinophils 0.3 10^3/uL (0-0.7); Absolute Lymphocytes 1.3 10^3/uL (1.2-3.4); Absolute Monocytes 0.5 10^3/uL (0.1-0.6); Absolute Neutrophils 2.9 10^3/uL (1.4-6.5); Hematocrit 41.4 % (39.0-52.0); Hemoglobin 13.8 g/dL (13.0-18.0); Mean Corp Hgb Conc. 33.3 g/dL (33.0-37.0); Mean Corpuscular Hgb 30.3 pg (27.0-31.0); Nucleated Red Blood Cells % 0 % (-); Platelet Count 91 10^3/uL (130-400); Red Blood Cell Count 4.55 10^6/uL (4.70-6.10); Red Cell Dist. Width 15.4 % (11.5-14.5)
[2024-08-09 09:44] LABS: Erythrocyte Sed Rate 1 mm/hour (0-20)
[2024-08-09 09:49] LABS: Urine Squamous Cell 0-2 /LPF (Few)
[2024-08-09 09:50] LABS: Urine Bacteria Few (Negative); Urine Red Blood Cell 30-40 /HPF (0-2)
[2024-08-09 10:30] LABS: Free T4 1.12 ng/dl (0.78-2.19); Vitamin D, 25-OH*** 49.5 ng/mL (30-80)
[2024-08-09 10:43] LABS: TSH 3.71 uIU/ml (0.47-4.68)
== END ==
LOC: HWLAB 07:10
PROVIDERS: ATTENDING PHYSICIAN Internal Medicine Geriatric Medicine
DX: I10 Essential (primary) hypertension (principal); I13.0 Hypertensive heart and chronic kidney disease with heart failure and stage 1 through stage 4 chronic kidney disease, or unspecified chronic kidney disease; N18.32 Chronic kidney disease, stage 3b; I48.0 Paroxysmal atrial fibrillation; E78.2 Mixed hyperlipidemia; I95.1 Orthostatic hypotension; J18.9 Pneumonia, unspecified organism; K40.90 Unilateral inguinal hernia, without obstruction or gangrene, not specified as recurrent; K22.710 Barrett's esophagus with low grade dysplasia; Z13.89 Encounter for screening for other disorder; I49.3 Ventricular premature depolarization; I47.20 Ventricular tachycardia, unspecified; I35.0 Nonrheumatic aortic (valve) stenosis
CPT/HCPCS: 36415; 80053; 80061; 81003; 81015; 82306; 84439; 84443; 85025; 85652

== ENCOUNTER → 2024-10-04 08:49 | Outpatient (REF) | payer MEDICARE, OTHER, SELFPAY | LOC: DHVS 08:49 | PROVIDERS: ATTENDING PHYSICIAN Registered Nurse | DX: I71.40 Abdominal aortic aneurysm, without rupture, unspecified (principal) | CPT/HCPCS: 76770 ==

== ENCOUNTER → 2024-10-18 08:24 | Outpatient (REF) | payer MEDICARE, OTHER, SELFPAY | LOC: HWRAD 08:24 | PROVIDERS: ATTENDING PHYSICIAN Surgery Vascular Surgery; FAMILY PHYSICIAN Internal Medicine Geriatric Medicine | DX: I71.40 Abdominal aortic aneurysm, without rupture, unspecified (principal) | CPT/HCPCS: 74176 ==

== ENCOUNTER 2024-11-28 20:28 | Emergency (ER) | payer MEDICARE, OTHER, SELFPAY ==
[2024-11-28 20:35] VITALS: BP 173/98
[2024-11-28 21:21] LABS: APTT 37.0 Sec (23.4-35.0)
[2024-11-28 21:35] LABS: Hematocrit 41.0 % (39.0-52.0); Hemoglobin 13.9 g/dL (13.0-18.0); Mean Corp Hgb Conc. 33.9 g/dL (33.0-37.0); Mean Corpuscular Volume 92.6 fL (80.0-94.0); Nucleated Red Blood Cells % 0 % (-); Platelet Count 84 10^3/uL (130-400); Red Cell Dist. Width 14.5 % (11.5-14.5)
[2024-11-28 21:37] LABS: ALT (SGPT) 20 U/L (0-50); AST (SGOT) 33 U/L (17-59); Albumin 4.2 g/dl (3.5-5.0); Alkaline Phosphatase 154 U/L (38-126); Blood Urea Nitrogen 23 mg/dl (9-20); Calcium 9.0 mg/dl (8.4-10.2); Carbon Dioxide 24 mmol/L (22-30); Chloride 110 mmol/L (98-107); Glucose 132 mg/dl (70-99); Potassium 4.6 mmol/L (3.5-5.1); Sodium 140 mmol/L (135-145); Total Protein 7.3 g/dl (6.3-8.2); eGFR 59.63
[2024-11-28 21:49] LABS: Troponin I < 0.012 ng/ml
[2024-11-28 23:05] VITALS: BP 150/84
--- NOTE | 2024-11-28 23:06 | ED.GENMED ---
History of Present Illness
General
Chief Complaint: Cardiac Symptoms
Source: patient
Exam Limitations: none
Time Seen by Provider: 11/28/24 23:05
Nursing documentation reviewed up to this point in time: agreed with
History of Present Illness
History of Present Illness:
Note:
CHIEF COMPLAINT(S)
Right-sided chest pain.
HISTORY OF PRESENT ILLNESS
The patient is an 84-year-old male with a pmh of atrial fibrillation on eliquis, aortic aneurysm, pacemaker implantation, and prior Pafu-Bbzyolvvt-Oahvv syndrome, which was ablated in the , aortic stenosis, presenting with right-sided chest
pain that began at approximately 6:30 pm this evening. The pain started while the patient was sitting at a desk and noted to increase with deep inspiration and certain movements of his right shoulder. The patient denied any history of recent heavy
lifting or injury to the chest wall, though mentioned lifting a new printer the previous day. 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 The pain is
described as intermittent, exacerbated by deep breaths or certain movements, and occasionally radiating up the right side of the neck. The patient denies previous similar episodes, associated abdominal pain, numbness, tingling, or exacerbation with
ambulation. The patient reported no involvement of the back, only a sensation of mild twinges. He denies nausea or vomiting
REVIEW OF SYSTEMS
- Respiratory: Pain exacerbated by deep breathing.
- Musculoskeletal: Pain aggravated by certain movements, particularly involving shoulder movement.
PHYSICAL EXAM
- Nursing notes reviewed and vital signs reviewed.
General: Patient is well appearing and in no acute distress; non-toxic
Skin: Warm and dry, no rashes or lesions
Head: Normocephalic, atraumatic
Eyes: Sclera non-icteric. EOMs intact.
Cardiac: Regular rate and rhythm, no murmurs
Peripheral Vascular: No lower extremity swelling or edema
Pulm: Normal respiratory effort, no wheezes, rales, rhonchi
Abdomen: No abdominal tenderness to palpation
Musculoskeletal: Tenderness palpation of the right external chest wall, right chest pain associated with right shoulder abduction
Neuro: CN II-XII intact, no focal neurologic deficits.
Psychiatric: Appropriate mood and affect.
PLAN
- Repeat troponin level in approximately thirty minutes from the time of assessment and 3 hours from the first to rule out cardiac etiology for the chest pain.
- Repeat electrocardiogram and check pacemaker functionality to rule out rhythm abnormalities.
- Consider the possibility of a CT scan to evaluate for pulmonary embolism given persistent symptoms despite anticoagulation with apixaban (Eliquis) vs aortic dissection given hx of ascending aortic aneurysm.
- Provide water and adjust administration time for the delayed dose of apixaban (Eliquis).
- Monitor for musculoskeletal causes due to exacerbation by shoulder movement.
DIFFERENTIAL DIAGNOSIS
The Differential Diagnosis includes, in no particular order and is not limited to:
1. Musculoskeletal chest pain
2. Costochondritis
3. Pulmonary embolism
4. Myocardial ischemia
5. Pneumonia
6. Pleurisy
7. Pericarditis
8. Angina pectoris
9. Pacemaker-related issues
10. Gastroesophageal reflux disease (GERD)
CHART REVIEW
Reviewed discharge summary from 02/17/2024 patient seen for nonsustained ventricular tachycardia he was initiated with antiarrhythmic and underwent cardiac catheterization
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
Reviewed discharge summary from 08/09/2022, patient seen for implantable chamber maker
UPDATE
On reevaluation patient states that he has no chest pain at rest but states that the pain is elicited when he moves his shoulder
MDM/DISPOSITION
ECG
ECG reveals AV dual paced rhythm with a rate of [address] angio is negative for aortic dissection does show mild aneurysm of the aortic root which appears unchanged lungs appear unremarkable
LABS
CBC unremarkable, CMP shows mildly elevated BUN to creatinine ratio, elevated total bilirubin however this is consistent with patient's baseline, troponin undetectable x 2, alk phos at baseline
84-year-old male presents emergency department for concerns of right-sided chest pain. Is worse when he takes a deep breath. It radiates into the neck. Seems to be elicited with movement. On physical exam he is well-appearing in no acute
distress he has clear pain elicited with shoulder abduction. He has no tenderness of the external chest wall. His heart regular rate and rhythm with no murmurs. Because of the symptoms of chest pain radiating into the neck, I did consult my ED
attending who came and saw patient with me at bedside and we decided to obtain CT angiography of the chest. This was negative. Suspect musculoskeletal etiology to his chest pain. Discussed follow-up with his PCP and office support clerk. Patient stable
for discharge.
Past History
Past History
ED Past Medical History: Arrthythmia (Atrial fib), HTN, Hypercholesterolemia, Valvular disease, Hypothyroidism, Other (Duodenal ulcer, WPW, Ferrell's esophagus. PVC's, Kidney stones,) and Other ( glossopharyngeal neuralgia); Negative CAD
ED Past Surgical History: Cardiac (3 ablations, 3 cardioversions), Cholecystectomy, Orthopedic and Other (Noncontributory)
Social History
Tobacco: Former smoker (quit 40 years ago)
Alcohol: Occasional
Drug: None
Personal:
Living: with family
Employment: Employed
Family History
Family History: Other (Noncontributory)
Review of Systems
Review of Systems
All Other Systems: ROS reviewed and negative except as documented in HPI and ROS
Phy Exam
Physical Exam
Physical Exam:
see hpi
Course
Orders/Labs/Results
Orders:
Orders
11/28/24 20:29
Electrocardiogram (*1) Urgent
Reason for Study: Chest Pain
EKG- Treatment ONCE
11/28/24 20:37
CR Chest - 2 Views Urgent
Comment:
Reason For Exam: SOB
11/28/24 20:43
Complete Blood Count/With Diff Urgent
Comprehensive Metabolic Panel Urgent
NT-proBNP Urgent
PTT Urgent
Troponin I Urgent
11/28/24 23:12
Interrogate Pacemaker- Treatment ONCE
11/28/24 23:35
Electrocardiogram (*1) Urgent
Reason for Study: Chest Pain
11/28/24 23:57
Troponin I Urgent
11/29/24
CT Chest Angio W/wo Iv Contras Urgent
Reason For Exam: chest pain into the neck, hx of ascending AA
Abnormal Lab Results
11/28/24
20:43
RBC 4.43 L 10^6/uL
(4.70-6.10)
MCH 31.4 H pg
(27.0-31.0)
Plt Count 84 L 10^3/uL
(130-400)
MPV 10.6 H fL
(7.4-10.4)
Monocytes % 9.4 H %
(1.7-9.3)
APTT 37.0 H Sec
(23.4-35.0)
Chloride 110 H mmol/L
(98-107)
BUN 23 H mg/dl
(9-20)
Glucose 132 H mg/dl
(70-99)
Total Bilirubin 1.8 H mg/dl
(0.2-1.3)
Alkaline Phosphatase 154 H U/L
(38-126)
11/28/24 20:43
11/28/24 20:43
Vital Signs
Initial and Last Documented VS:
Initial Vital Signs
Temp Pulse Resp BP Pulse Ox
98.0 F 76 20 173/98 99
11/28/24 20:35 11/28/24 20:35 11/28/24 20:35 11/28/24 20:35 11/28/24 20:35
Last Documented Vital Signs
Temp Pulse Resp BP Pulse Ox
98.0 F 73 16 110/90 92
11/28/24 20:35 11/29/24 01:15 11/29/24 01:15 11/29/24 01:00 11/29/24 01:15
*Pulse Oximetry
SaO2: 99
Oxygen Mode of Delivery: Room air
Patient hypoxic: no
*Critical Care Note
Total Time (30-74mins, 75-104mins- exclusive of procedures): Not Applicable
ED Attending Note
-
Portions of this chart may have been created with voice recognition software.� Occasional wrong word or��sound alike� substitutions may have occurred due to the inherent limitations of voice recognition software.
Discharge Plan
Departure
Patient Disposition: Home (Routine Discharge)
Date of Disposition: 11/29/24
Time of Disposition: 02:25
Patient with high blood pressure during this ER visit?: Yes
Condition: Good
Discharge Problem:
Chest pain, Neck pain
Instructions: Chest Pain (DC), BLOOD PRESSURE
Prescriptions:
No Action
Centrum Silver 1 EACH tablet
1 ea PO DAILY
Eliquis 5 MG tablet
5 mg PO BID Qty: 90 3RF
levothyroxine [Synthroid] 50 mcg Tablet
50 mcg PO DAILY
cholecalciferol (vitamin D3) [Vitamin D3] 25 mcg (1,000 unit) Capsule
25 mcg PO DAILY
acetaminophen 500 mg Tablet
1,000 mg PO Q6HPRN PRN (Reason: mild pain)
ferrous sulfate 325 mg (65 mg iron) Tablet
325 mg PO DAILY Qty: 0
atorvastatin 80 mg Tablet
80 mg PO NOON
ascorbic acid (vitamin C) [Vitamin C] 1,000 mg Tablet
1,000 mg PO DAILY
pantoprazole 40 mg Tablet,Delayed Release (Dr/Ec)
40 mg PO BID
ezetimibe 10 mg Tablet
10 mg PO NOON
coenzyme Q10 [CoQ-10] 100 mg Capsule
100 mg PO DAILY
potassium citrate 99 mg Capsule
99 mg PO BID
dofetilide [Tikosyn] 500 mcg capsule
500 mcg PO Q12H Qty: 60 11RF
tamsulosin [Flomax] 0.4 mg capsule
0.4 mg PO DAILY Qty: 5 0RF
Referrals:
Randolph Adams MD [Family Provider, Internal Medicine]
Activity Restrictions/Additional Instructions:
You can take Tylenol and [id number] medication as needed for your pain. As discussed, your blood work is unremarkable and unchanged from baseline. Your troponin is undetectable x 2. Your pacemaker evaluation does not show any evidence of
abnormal heart rhythm recently.
Please follow-up with your primary care provider.
PLEASE RETURN EMERGENCY DEPARTMENT SHOULD YOU DEVELOP ANY ACUTE WORSENING RETURN OF YOUR SYMPTOMS, SHORTNESS OF BREATH, LIGHTHEADEDNESS, DIZZINESS, FAINTING SPELLS, OR ANY OTHER SIGNS OR SYMPTOMS WORRISOME TO YOU.
Interventions
Interventions:
*General Assessment Last Done: 11/28/24 20:35
ED- Cardiac Assessment Last Done: 11/29/24 00:29
ED- Pulmonary Assessment Last Done: 11/29/24 00:29
Discharge Date and Time
Print Language: PANAMANIAN
[2024-11-28 23:39] VITALS: BMI 26.9
[2024-11-29] VITALS: BP 147/81
[2024-11-29 00:36] LABS: Troponin I < 0.012 ng/ml
[2024-11-29 01:00] VITALS: BP 110/90
[2024-11-29 02:07] VITALS: BP 154/95
== END 2024-11-29 03:16 | disposition home or self-care (01) ==
LOC: EMR 20:28
PROVIDERS: Physician Assistant; EMERGENCY PHYSICIAN Emergency Medicine; FAMILY PHYSICIAN Internal Medicine Geriatric Medicine
DX: R07.89 Other chest pain (principal); M54.2 Cervicalgia; I10 Essential (primary) hypertension; I48.91 Unspecified atrial fibrillation; E78.00 Pure hypercholesterolemia, unspecified; E03.9 Hypothyroidism, unspecified; I45.6 Pre-excitation syndrome; G52.1 Disorders of glossopharyngeal nerve; I71.21 Aneurysm of the ascending aorta, without rupture; I35.0 Nonrheumatic aortic (valve) stenosis; I48.92 Unspecified atrial flutter; G47.30 Sleep apnea, unspecified; M19.90 Unspecified osteoarthritis, unspecified site; I25.2 Old myocardial infarction; Z79.01 Long term (current) use of anticoagulants; Z95.0 Presence of cardiac pacemaker; Z85.828 Personal history of other malignant neoplasm of skin; Z87.891 Personal history of nicotine dependence; Z87.442 Personal history of urinary calculi; Z87.19 Personal history of other diseases of the digestive system; Z90.49 Acquired absence of other specified parts of digestive tract; Z88.6 Allergy status to analgesic agent; Z88.8 Allergy status to other drugs, medicaments and biological substances
CPT/HCPCS: 99285; 93288; 71046; 71275; 80053; 83880; 84484; 85025; 85730; 93005; Q9967

== ENCOUNTER → 2024-12-02 15:40 | Outpatient (REF) | payer MEDICARE, OTHER, SELFPAY | LOC: RAD 15:40 | PROVIDERS: ATTENDING PHYSICIAN Nurse Practitioner Primary Care | DX: R19.01 Right upper quadrant abdominal swelling, mass and lump (principal); R58 Hemorrhage, not elsewhere classified | CPT/HCPCS: 76705 ==

== ENCOUNTER → 2024-12-19 15:21 | Outpatient (REF) | payer MEDICARE, OTHER, SELFPAY | LOC: RAD 15:21 | PROVIDERS: ATTENDING PHYSICIAN Nurse Practitioner Primary Care; FAMILY PHYSICIAN Internal Medicine Geriatric Medicine | DX: R19.01 Right upper quadrant abdominal swelling, mass and lump (principal); R58 Hemorrhage, not elsewhere classified | CPT/HCPCS: 74177; Q9967 ==

== ENCOUNTER → 2025-01-19 09:00 | Outpatient (REF) | payer MEDICARE, OTHER, SELFPAY ==
[2025-01-19 12:14] LABS: INR 1.17; PT 15.4 Sec (11.4-14.6)
[2025-01-19 12:15] LABS: APTT 34.2 Sec (23.4-35.0)
[2025-01-19 12:19] LABS: Hematocrit 39.8 % (39.0-52.0); Hemoglobin 13.3 g/dL (13.0-18.0); Mean Corp Hgb Conc. 33.4 g/dL (33.0-37.0); Mean Corpuscular Volume 91.7 fL (80.0-94.0); Nucleated Red Blood Cells % 0 % (-); Platelet Count 85 10^3/uL (130-400); Red Cell Dist. Width 14.5 % (11.5-14.5)
[2025-01-19 12:21] LABS: ALT (SGPT) 28 U/L (0-50); AST (SGOT) 39 U/L (17-59); Albumin 4.1 g/dl (3.5-5.0); Alkaline Phosphatase 148 U/L (38-126); Blood Urea Nitrogen 23 mg/dl (9-20); Calcium 9.1 mg/dl (8.4-10.2); Carbon Dioxide 27 mmol/L (22-30); Chloride 106 mmol/L (98-107); Glucose 118 mg/dl (70-99); Potassium 4.4 mmol/L (3.5-5.1); Sodium 138 mmol/L (135-145); Total Protein 7.0 g/dl (6.3-8.2); eGFR > 60.00
== END ==
LOC: HWLAB 09:00
PROVIDERS: ATTENDING PHYSICIAN Nurse Practitioner Primary Care
DX: R17 Unspecified jaundice (principal); R23.3 Spontaneous ecchymoses
CPT/HCPCS: 36415; 80053; 82248; 85025; 85610; 85730

== ENCOUNTER → 2025-01-23 08:07 | Outpatient (REF) | payer MEDICARE, OTHER, SELFPAY | LOC: HWRCS 08:07 | PROVIDERS: ATTENDING PHYSICIAN Internal Medicine Cardiovascular Disease; FAMILY PHYSICIAN Internal Medicine Geriatric Medicine | DX: I10 Essential (primary) hypertension (principal); I35.1 Nonrheumatic aortic (valve) insufficiency | CPT/HCPCS: 93306 ==

== ENCOUNTER → 2025-02-06 15:28 | Outpatient (REF) | payer MEDICARE, OTHER, SELFPAY ==
[2025-02-06 17:22] LABS: Hematocrit 42.0 % (39.0-52.0); Hemoglobin 13.9 g/dL (13.0-18.0); Mean Corp Hgb Conc. 33.1 g/dL (33.0-37.0); Mean Corpuscular Volume 92.5 fL (80.0-94.0); Nucleated Red Blood Cells % 0 % (-); Platelet Count 87 10^3/uL (130-400); Red Cell Dist. Width 14.6 % (11.5-14.5)
[2025-02-06 18:08] LABS: Folate > 20.0 ng/ml (2.76-20); Vitamin B12 371 pg/ml (239-931)
== END ==
LOC: REG 15:28
PROVIDERS: ATTENDING PHYSICIAN Internal Medicine Hematology & Oncology; FAMILY PHYSICIAN Internal Medicine Geriatric Medicine
DX: D69.6 Thrombocytopenia, unspecified (principal)
CPT/HCPCS: 36415; 82607; 82746; 85025

== ENCOUNTER → 2025-02-21 08:29 | Outpatient (REF) | payer MEDICARE, OTHER, SELFPAY ==
[2025-02-21 09:07] VITALS: BP 157/98; BP_SYST 71; BMI 26.6
[2025-02-21 09:18] LABS: Hematocrit 41.3 % (39.0-52.0); Hemoglobin 14.0 g/dL (13.0-18.0); Mean Corp Hgb Conc. 33.9 g/dL (33.0-37.0); Mean Corpuscular Volume 92.6 fL (80.0-94.0); Red Cell Dist. Width 14.6 % (11.5-14.5)
[2025-02-21 09:28] LABS: ALT (SGPT) 19 U/L (0-50); AST (SGOT) 31 U/L (17-59); Albumin 4.4 g/dl (3.5-5.0); Alkaline Phosphatase 131 U/L (38-126); Blood Urea Nitrogen 15 mg/dl (9-20); Calcium 9.3 mg/dl (8.4-10.2); Carbon Dioxide 28 mmol/L (22-30); Chloride 104 mmol/L (98-107); Estimated Creatinine Clearance 56 ml/min; Glucose 86 mg/dl (70-99); HDL Cholesterol 66 mg/dl; LDL Cholesterol, Calculated 33 mg/dl; Potassium 4.5 mmol/L (3.5-5.1); Sodium 138 mmol/L (135-145); Total Protein 7.5 g/dl (6.3-8.2); Very Low Density Lipoprotein 16 mg/dl (0-30); eGFR > 60.00
[2025-02-21 09:29] LABS: Urine Character Clear (Clear)
[2025-02-21 09:54] LABS: TSH 3.62 uIU/ml (0.47-4.68)
[2025-02-21 09:56] LABS: Nucleated Red Blood Cells % 0 % (-); Platelet Count 86 10^3/uL (130-400)
[2025-02-21 10:32] LABS: Urine Squamous Cell 0-2 /LPF (Few)
[2025-02-21 10:33] LABS: Urine Red Blood Cell 0-2 /HPF (0-2); Urine White Cell 0-2 /HPF (0-5)
[2025-02-21 11:00] VITALS: BP 152/90; BP_SYST 71
[2025-02-21 11:05] VITALS: BP 154/92; BP_SYST 70
[2025-02-21 11:10] VITALS: BP 149/86; BP_SYST 70
[2025-02-21 11:25] VITALS: BP 143/91
== END ==
LOC: RADI 08:29
PROVIDERS: ATTENDING PHYSICIAN Internal Medicine Hematology & Oncology; FAMILY PHYSICIAN Internal Medicine Geriatric Medicine; OTHER PHYSICIAN Internal Medicine Cardiovascular Disease; REFERRING PHYSICIAN Physician Assistant
DX: D69.6 Thrombocytopenia, unspecified (principal); D68.8 Other specified coagulation defects
CPT/HCPCS: 36415; 38222; 77012; 80053; 80061; 81003; 81015; 84439; 84443; 85025; 88305; 88311; 88312; 88313; 99152

== ENCOUNTER → 2025-03-30 09:02 | Outpatient (REF) | payer MEDICARE, OTHER, SELFPAY ==
[2025-03-30 10:27] LABS: Hematocrit 41.4 % (39.0-52.0); Hemoglobin 13.5 g/dL (13.0-18.0); Mean Corp Hgb Conc. 32.6 g/dL (33.0-37.0); Mean Corpuscular Volume 93.5 fL (80.0-94.0); Nucleated Red Blood Cells % 0 % (-); Platelet Count 94 10^3/uL (130-400); Red Cell Dist. Width 14.7 % (11.5-14.5)
[2025-03-30 11:01] LABS: ALT (SGPT) 20 U/L (0-50); AST (SGOT) 34 U/L (17-59); Albumin 4.2 g/dl (3.5-5.0); Alkaline Phosphatase 132 U/L (38-126); Blood Urea Nitrogen 19 mg/dl (9-20); Calcium 9.0 mg/dl (8.4-10.2); Carbon Dioxide 26 mmol/L (22-30); Chloride 106 mmol/L (98-107); Glucose 85 mg/dl (70-99); Potassium 4.5 mmol/L (3.5-5.1); Sodium 138 mmol/L (135-145); Total Protein 7.2 g/dl (6.3-8.2); eGFR > 60.00
[2025-03-30 11:11] LABS: TSH 2.63 uIU/ml (0.47-4.68)
== END ==
LOC: REG 09:02
PROVIDERS: ATTENDING PHYSICIAN Internal Medicine Endocrinology, Diabetes & Metabolism; FAMILY PHYSICIAN Internal Medicine Geriatric Medicine; REFERRING PHYSICIAN Internal Medicine Hematology & Oncology
DX: D69.6 Thrombocytopenia, unspecified (principal); D69.3 Immune thrombocytopenic purpura; N25.81 Secondary hyperparathyroidism of renal origin; E06.3 Autoimmune thyroiditis; I35.2 Nonrheumatic aortic (valve) stenosis with insufficiency
CPT/HCPCS: 36415; 80053; 83970; 84443; 85025

== ENCOUNTER → 2025-04-24 08:23 | Outpatient (REF) | payer MEDICARE, OTHER, SELFPAY ==
[2025-04-24 12:11] LABS: Hematocrit 36.8 % (39.0-52.0); Hemoglobin 12.3 g/dL (13.0-18.0); Mean Corp Hgb Conc. 33.4 g/dL (33.0-37.0); Mean Corpuscular Volume 91.8 fL (80.0-94.0); Nucleated Red Blood Cells % 0 % (-); Platelet Count 80 10^3/uL (130-400); Red Cell Dist. Width 14.7 % (11.5-14.5)
== END ==
LOC: RAD 08:23
PROVIDERS: ATTENDING PHYSICIAN Physician Assistant; FAMILY PHYSICIAN Internal Medicine Geriatric Medicine; OTHER PHYSICIAN Internal Medicine Hematology & Oncology
DX: I71.40 Abdominal aortic aneurysm, without rupture, unspecified (principal); D69.6 Thrombocytopenia, unspecified; D69.3 Immune thrombocytopenic purpura
CPT/HCPCS: 36415; 74176; 85025

== ENCOUNTER → 2025-05-17 13:56 | Outpatient (REF) | payer MEDICARE, OTHER, SELFPAY | LOC: RAD 13:56 | PROVIDERS: ATTENDING PHYSICIAN Surgery Vascular Surgery; FAMILY PHYSICIAN Internal Medicine Geriatric Medicine; OTHER PHYSICIAN Student in an Organized Health Care Education/Training Program | DX: I71.40 Abdominal aortic aneurysm, without rupture, unspecified (principal); I70.90 Unspecified atherosclerosis; I87.2 Venous insufficiency (chronic) (peripheral) | CPT/HCPCS: 93922; 93970 ==